=== PATIENT | female | born 1940 | race Caucasian/White ===

== ENCOUNTER → 2016-09-06 | Outpatient (CLI) | payer BC ==
[~2016-09-06] MED LIST: BROM0.0911 OPR; CALC-51 PO; CZR25 PO; MULT-506 PO; OMEGCAP2 PO; PRED1SUS3 OPR; SERT1TAB71 PO; TRIATAB3 PO
[2016-09-06 12:41] LABS: BLOOD UREA NITROGEN 15 mg/dl (7-18); BUN/CREATININE RATIO 12.8 (10-20); CARBON DIOXIDE 25 mmol/L (21-32); CHLORIDE 105 mmol/L (98-107); GLUCOSE 104 mg/dl (70-99); POTASSIUM 3.6 mmol/L (3.5-5.1); SODIUM 140 mmol/L (136-145)
[2016-09-06 12:45] LABS: CHOLESTEROL 230 mg/dl (0-200); CHOLESTEROL/HDL RATIO 4.2; HDL CHOLESTEROL 55 mg/dl; LDL CHOLESTEROL CALCULATED 111 mg/dl; TRIGLYCERIDES 321 mg/dl (0-150); VERY LOW DENSITY LIPOPROT CALC 64 mg/dl
== END | disposition home or self-care (01) ==
LOC: C.LABPVFM 08:43
PROVIDERS: ATTEND Family Medicine
DX: F32.9 Major depressive disorder, single episode, unspecified (principal)

== ENCOUNTER → 2017-02-05 | Outpatient (CLI) | payer BC ==
[2017-02-05 13:12] LABS: BLOOD UREA NITROGEN 25 mg/dl (7-18); BUN/CREATININE RATIO 22.6 (10-20); CALCIUM 9.6 mg/dl (8.5-10.1); CARBON DIOXIDE 26 mmol/L (21-32); CHLORIDE 106 mmol/L (98-107); GLUCOSE 106 mg/dl (70-99); POTASSIUM 3.6 mmol/L (3.5-5.1); SODIUM 141 mmol/L (136-145)
[2017-02-05 13:16] LABS: CHOLESTEROL 267 mg/dl (0-200); CHOLESTEROL/HDL RATIO 4.6; HDL CHOLESTEROL 58 mg/dl; LDL CHOLESTEROL CALCULATED 152 mg/dl; TRIGLYCERIDES 285 mg/dl (0-150); VERY LOW DENSITY LIPOPROT CALC 57 mg/dl
[2017-02-05 13:21] LABS: ESTIMATED AVERAGE GLUCOSE 126 mg/dl; HA1C FLAG Normal (Normal)
--- NOTE | 2017-02-09 12:43 | CODING QUERY MEDICAL NECESSITY ---
SUPPORTING DIAGNOSIS NEEDED A supporting diagnosis is required for the test/procedure performed on this patient in order for us to be reimbursed by the patient's insurance. Please provide a supporting diagnosis for the following test/procedure listed below next to the test name along with your signature. *If there is no additional diagnosis for this patient that would support the following test/procedure please document that below next to the test/procedure. Test(s)/Procedure(s) that require a supporting diagnosis: * HEMOGLOBIN A1C DIAGNOSIS: Provider Signature: Date: Thank you Katherine Brasher [employer] Information Management Once completed, please kindly fax back to [phone] For questions please call [phone]
== END | disposition home or self-care (01) ==
LOC: C.LABPVFM 08:46
PROVIDERS: ATTEND Family Medicine
DX: E78.5 Hyperlipidemia, unspecified (principal); I10 Essential (primary) hypertension; R53.83 Other fatigue; R73.03 Prediabetes; R73.09 Other abnormal glucose

== ENCOUNTER → 2017-05-02 | Outpatient (CLI) | payer BC ==
--- NOTE | 2017-05-02 13:41 | MAMMOGRAPHY REPORT ---
BILATERAL DIGITAL SCREENING MAMMOGRAM TOMOSYNTHESIS WITH CAD: 05/02/2017 CLINICAL HISTORY: Routine screening. TECHNIQUE: Breast tomosynthesis in addition to standard 2D mammography was performed. Current study was also evaluated with a Computer Aided Detection (CAD) system. COMPARISON: Comparison is made to exams dated: 04/26/2016 mammogram, 03/31/2015 mammogram, 02/11/2014 ma mmogram, 12/07/2011 mammogram, 12/05/2010 mammogram, and 11/30/2009 mammogram - [facility] nter. BREAST COMPOSITION: The tissue of both breasts is heterogeneously dense, which may obscure small mas ses. FINDINGS: No suspicious masses, calcifications, or areas of architectural distortion are noted in ei ther breast. There has been no significant interval change compared to prior exams. Scattered bilater al benign-appearing calcifications are not significantly changed. IMPRESSION: ACR BI-RADS CATEGORY 2: BENIGN There is no mammographic evidence of malignancy. A 1 year screening mammogram is recommended. The pa tient will receive written notification of the results. Approximately 10% of breast cancers are not detected with mammography. A negative mammographic report should not delay biopsy if a clinically suggestive mass is present. Maine Whitaker M.D. ah/:05/02/2017 10:45:04 Data Analyst Etl Developer: Mark KO)(Michaela), [facility] letter sent: Normal 1/2 BI-RADS Code: ACR BI-RADS Category 2: Benign
== END | disposition home or self-care (01) ==
LOC: C.MAMM 10:14
PROVIDERS: ATTEND Family Medicine
DX: Z12.31 Encounter for screening mammogram for malignant neoplasm of breast (principal)

== ENCOUNTER → 2017-06-04 | Outpatient (CLI) | payer BC ==
[2017-06-04 13:55] LABS: CHOLESTEROL/HDL RATIO 2.2
== END | disposition home or self-care (01) ==
LOC: C.LABPVFM 09:13
PROVIDERS: ATTEND Family Medicine
DX: E78.5 Hyperlipidemia, unspecified (principal)

== ENCOUNTER → 2017-06-06 | Outpatient (CLI) | payer BC ==
[2017-06-07 08:30] LABS: ESTIMATED AVERAGE GLUCOSE 123 mg/dl; HA1C FLAG Normal (Normal)
== END | disposition home or self-care (01) ==
LOC: C.LABPVFM 14:53
PROVIDERS: ATTEND Family Medicine
DX: G62.9 Polyneuropathy, unspecified (principal)

== ENCOUNTER 2022-01-15 09:27 | Inpatient (IN) ==
[2022-01-15] MEDS ORDERED: ONDANSETRON INJ 2 MG/ML 2 ML VIAL IV STA (10:15)
[2022-01-15] MEDS ORDERED: SODIUM CHLORIDE 0.9% 500 ML IV SCH (10:15)
--- NOTE | 2022-01-15 10:18 | Emergency Department Note ---
History of Present Illness General Chief complaint: Flu Like Symptoms Stated complaint: FEVER/HEADACHE/COUGH/CAN'T WALK Time Seen by Provider: 01/15/22 09:53 Source: patient History of Present Illness Provider complaint: Flulike symptoms Onset (ago): day(s) 3 Location: head, chest, upper extremity and lower extremity Pain Consistency: + constant Maximum Pain Intensity: 0 Quality: + aching Relieved By: + none Associated symptoms: + cough, + fever/chills, + headaches, + malaise, + nausea/vomiting and + weakness; no chest pain, no rash or no shortness of breath This is an 81-year-old female presents with flulike symptoms for the past 3 days. She started with a cough and headache. She describes her headache as a right frontal headache which is throbbing. It is worse when she is coughing. She states she is not bringing up anything with her cough but she coughs so hard sometimes that she throws up. She has been nauseous and unable to keep down her pills for the past 3 days. She denies any abdominal pain or diarrhea. She does have diffuse myalgias as well as generalized weakness. She had a slight sore throat. She denies any loss of taste or smell. She has no chest pain or tk rtness of breath or abdominal pain. She denies any urinary symptoms. She has had no tick bites or rash. She is fully vaccinated for COVID-19 with 1 booster. She has had no sick contacts. She has had tactile fevers and chills. Home Medications Medication Instructions Recorded Confirmed Type cholecalciferol (vitamin D3) 25 1,000 units PO DAILY cap 05/23/19 01/15/22 History mcg (1,000 unit) capsule multivitamin 1 tab PO DAILY 05/23/19 01/15/22 History omega-3 acid ethyl esters 1 gram 1 cap PO DAILY cap 05/23/19 01/15/22 History capsule travoprost 0.004 % eye drops 1 drops OP QPM ml 05/23/19 01/15/22 History atorvastatin 10 mg tablet 10 mg PO DAILY #90 tab 09/08/21 01/15/22 Rx losartan 25 mg tablet 25 mg PO DAILY #90 tab 09/23/21 01/15/22 Rx sertraline 50 mg tablet 50 mg PO DAILY #90 tab 09/23/21 01/15/22 Rx triamterene 37.5 1 cap PO DAILY #90 cap 09/23/21 01/15/22 Rx mg-hydrochlorothiazide 25 mg capsule alendronate 70 mg tablet 70 mg PO WEEKLY #12 tab 12/12/21 01/15/22 Rx glimepiride 2 mg tablet 2 mg PO QAM #90 tab 01/02/22 01/15/22 Rx Allergies Allergy/AdvReac Type Severity Reaction Status Date / Time No Known Allergies Allergy Unverified 09/08/21 10:30 Past Med/Surg History Medical History (Updated 01/15/22 @ 15:23 by Elvis Mayberry MD) HTN (hypertension) Hyperlipidemia Osteoporosis Surgical History Hx of shoulder surgery Family History Sister Colorectal cancer Denies family history of Ovarian cancer Prostate cancer Myocardial infarction Breast cancer Social History Smoking Status: Never smoker Second Hand Exposure: Yes; Hx Alcohol Use: No Hx Substance Use: No Preferred Language: Luxembourger Communication Ability: Effective Air Lift Operator Required: No marital status: Current Living Situation: Spouse current occupational status: retired How many Children do You have: 3 Feels Safe at Home: Yes Childhood Exposure to Second-Hand Smoke: No caffeine: Yes Dental Care, Regularly: No Physical Activity Frequency: Daily Seatbelt Use: always Sunscreen Use: Yes (sometimes) Review of Systems See HPI for pertinent positives & negatives. and A total of 10 systems reviewed and were otherwise negative Physical Exam Vital Signs Vital Signs - 24 hr 01/15/22 09:36 01/15/22 10:14 01/15/22 10:58 Temperature 36.7 C Temperature Source Oral Pulse Rate 90 Pulse Rate [Right Finger] Pulse Rhythm [Right Finger] Respiratory Rate 18 20 Respiratory Effort / Characteristics Non-Labored Spontaneous Non-Labored Respiratory Depth Blood Pressure 141/75 H Blood Pressure [Right Arm] Blood Pressure Mean 97 Blood Pressure Mean [Right Arm] Pulse Oximetry 94 95 Oxygen Delivery Method Room Air Room Air Sepsis Recent Fever Within 48 Hours No Sepsis New/Unexplained Change in Mental Status No Sepsis Action Taken by Nursing No Action Required 01/15/22 11:24 01/15/22 11:36 01/15/22 12:33 Temperature Temperature Source Pulse Rate Pulse Rate [Right Finger] 86 Pulse Rhythm [Right Finger] Respiratory Rate 18 Respiratory Effort / Characteristics Non-Labored Non-Labored Non-Labored Respiratory Depth Normal Blood Pressure Blood Pressure [Right Arm] 127/62 Blood Pressure Mean Blood Pressure Mean [Right Arm] 83 Pulse Oximetry 94 Oxygen Delivery Method Room Air Sepsis Recent Fever Within 48 Hours Sepsis New/Unexplained Change in Mental Status Sepsis Action Taken by Nursing 01/15/22 13:00 Temperature Temperature Source Pulse Rate Pulse Rate [Right Finger] 94 H Pulse Rhythm [Right Finger] Regular Respiratory Rate 18 Respiratory Effort / Characteristics Non-Labored Respiratory Depth Normal Blood Pressure Blood Pressure [Right Arm] 124/78 Blood Pressure Mean Blood Pressure Mean [Right Arm] 93 Pulse Oximetry 98 Oxygen Delivery Method Room Air Sepsis Recent Fever Within 48 Hours Sepsis New/Unexplained Change in Mental Status Sepsis Action Taken by Nursing Constitutional: Vital signs reviewed. Eyes: Pupils are equal round reactive to light. Conjunctiva are noninjected. ENT: Pharynx is clear without erythema or exudate. Mucous membranes are moist. Neck supple without meningeal signs. Respiratory: Clear to auscultation bilaterally. Breath sounds are equal bilaterally. Cardiovascular: Regular rate and rhythm. No rubs or gallops. GI: Soft, nondistended and nontender. Bowel sounds are present. Musculoskeletal: No peripheral edema. No lower extremity tenderness. Integumentary: No cyanosis. or jaundice. Neurological: The patient is awake and alert. No focal deficits. Psychiatric: Normal affect. Not anxious appearing. Course Administered Medications Discontinued Medications Sodium Chloride (Nss) 500 mls @ 80 mls/hr IV .[id number] [facility] Stop: 02/14/22 10:14 Last Infusion: 01/15/22 15:15 Dose: 0 mls/hr Documented by: [id number] Admin: 01/15/22 10:32 Dose: 80 mls/hr Documented by: [id number] Magnesium Sulfate/Dextrose (Magnesium Sulfate / D5w) 1 gm in 100 mls @ 100 mls/hr IV Q1H [facility] Stop: 01/15/22 13:13 Last Infusion: 01/15/22 13:33 Dose: 0 mls/hr Documented by: [id number] Admin: 01/15/22 12:21 Dose: 100 mls/hr Documented by: [id number] Infusion: 01/15/22 12:21 Dose: 100 mls/hr Documented by: [id number] Admin: 01/15/22 11:22 Dose: 100 mls/hr Documented by: [id number] Ceftriaxone Sodium (Rocephin) 2,000 mg in 70 mls @ 140 mls/hr IV NOW STA Stop: 01/15/22 13:18 Last Infusion: 01/15/22 14:11 Dose: 0 mls/hr Documented by: [id number] Admin: 01/15/22 13:34 Dose: 140 mls/hr Documented by: [id number] Ondansetron HCl (Ondansetron Inj 2 Mg/Ml 2 Ml Vial) 4 mg IV NOW STA Stop: 01/15/22 10:16 Last Admin: 01/15/22 10:32 Dose: 4 mg Documented by: [id number] Medical Decision Making Differential Diagnosis Sepsis, COVID-19, pneumonia, UTI, influenza, tickborne illness Medical Records Attestation: I reviewed the patient's medical records. I did perform a limited focused review of portions of the patient's old chart on the electronic medical record. The patient has had no recent pertinent visits to this hospital. Home Medications Current Medication List: was personally reviewed by me Laboratory Data Attestation: I reviewed the patient's lab results. Result diagrams: 01/15/22 09:45 01/15/22 09:45 Lab Results 01/15/22 01/15/22 01/15/22 Range/Units 09:45 09:45 09:45 WBC 8.17 (4.8-10.8) K/uL RBC 4.47 (4.2-5.4) M/uL Hgb 13.4 (12.0-16.0) g/dL Hct 37.8 (37-47) % MCV 84.6 (80-100) fL MCH 30.0 (25-34) pg MCHC 35.4 (32-36) g/dL RDW Std Deviation 40.1 (36.4-46.3) fL RDW Coeff of Cecilio 13.0 (11.5-14.5) % Plt Count 168 (130-400) K/uL MPV 9.6 (7.4-10.4) fL Immature Gran % (Auto) 0.2 % Neut % (Auto) 79.4 % Lymph % (Auto) 11.9 % Isabella % (Auto) 8.3 % Eos % (Auto) 0.0 % Baso % (Auto) 0.2 % Neut # (Auto) 6.48 (1.4-6.5) K/uL Lymph # (Auto) 0.97 L (1.2-3.4) K/uL Isabella # (Auto) 0.68 H (0.11-0.59) K/uL Eos # (Auto) 0.00 (0-0.5) K/uL Baso # (Auto) 0.02 (0-0.2) K/uL Immature Gran # (Auto) 0.02 (0.00-0.02) K/uL PT 12.0 (9.0-12.0) Seconds INR 1.1 (0.9-1.1) APTT 29.6 (21.0-31.0) Seconds PTT Ratio 1.1 Sodium 127 L (136-145) mmol/L Potassium 3.8 (3.5-5.1) mmol/L Chloride 94 L (98-107) mmol/L Carbon Dioxide 21 (21-32) mmol/L Anion Gap 12 H (3-11) BUN 14 (6-23) mg/dl Creatinine 1.04 (0.6-1.2) mg/dl Est Cr Clr Drug Dosing Not Reportable Est GFR ( Amer) 57.9 ml/min Est GFR (Non-Af Amer) 50.0 ml/min BUN/Creatinine Ratio 13.5 (10-20) Glucose 190 H (70-99(Fasting)) mg/dl Lactate (0.4-2.0) mmol/L Calcium 9.0 (8.5-10.1) mg/dl Magnesium 1.4 L (1.7-2.4) mg/dl Total Bilirubin 0.9 (0.2-1.0) mg/dl AST 45 H (13-39) U/L ALT 43 (7-52) U/L Alkaline Phosphatase 67 (34-104) U/L Troponin I High Sens 11.9 (0-14) pg/ml Total Protein 7.2 (6.0-8.3) gm/dl Albumin 4.0 (3.4-5.0) gm/dl Globulin 3.2 (2.5-4.0) gm/dl Albumin/Globulin Ratio 1.3 (0.9-2) Urine Color Urine Appearance (Clear) Urine pH (4.5-7.5) Ur Specific Crane (1.000-1.030) Urine Protein (Negative) Urine Glucose (UA) (Negative) Urine Ketones (Negative) Urine Blood (Negative) Urine Nitrite (Negative) Urine Bilirubin (Negative) Urine Urobilinogen (Negative) Ur Leukocyte Esterase (Negative) Urine WBC (Auto) (0-5) /hpf Urine RBC (Auto) (0-4) /hpf U Hyaline Cast (Auto) (0-5) /lpf U Epithel Cells (Auto) (0-5) /lpf Urine Bacteria (Auto) (Negative) Urine Osmolality (500-800) mOsm/kg Ur Random Sodium mmol/L Anaplasma Smear See Comment Babesia Smear See Comment Lyme Disease IgG Ab (Negative) Lyme Disease IgM Ab (Negative) SARS-CoV-2 (PCR) (Negative) Influenza Type A (PCR) (Neg) Influenza Type B (PCR) (Neg) RSV (RT-PCR) (Neg) 01/15/22 01/15/22 01/15/22 Range/Units 09:45 10:20 10:20 WBC (4.8-10.8) K/uL RBC (4.2-5.4) M/uL Hgb (12.0-16.0) g/dL Hct (37-47) % MCV (80-100) fL MCH (25-34) pg MCHC (32-36) g/dL RDW Std Deviation (36.4-46.3) fL RDW Coeff of Cecilio (11.5-14.5) % Plt Count (130-400) K/uL MPV (7.4-10.4) fL Immature Gran % (Auto) % Neut % (Auto) % Lymph % (Auto) % Isabella % (Auto) % Eos % (Auto) % Baso % (Auto) % Neut # (Auto) (1.4-6.5) K/uL Lymph # (Auto) (1.2-3.4) K/uL Isabella # (Auto) (0.11-0.59) K/uL Eos # (Auto) (0-0.5) K/uL Baso # (Auto) (0-0.2) K/uL Immature Gran # (Auto) (0.00-0.02) K/uL PT (9.0-12.0) Seconds INR (0.9-1.1) APTT (21.0-31.0) Seconds PTT Ratio Sodium (136-145) mmol/L Potassium (3.5-5.1) mmol/L Chloride (98-107) mmol/L Carbon Dioxide (21-32) mmol/L Anion Gap (3-11) BUN (6-23) mg/dl Creatinine (0.6-1.2) mg/dl Est Cr Clr Drug Dosing Est GFR ( Amer) ml/min Est GFR (Non-Af Amer) ml/min BUN/Creatinine Ratio (10-20) Glucose (70-99(Fasting)) mg/dl Lactate (0.4-2.0) mmol/L Calcium (8.5-10.1) mg/dl Magnesium (1.7-2.4) mg/dl Total Bilirubin (0.2-1.0) mg/dl AST (13-39) U/L ALT (7-52) U/L Alkaline Phosphatase (34-104) U/L Troponin I High Sens (0-14) pg/ml Total Protein (6.0-8.3) gm/dl Albumin (3.4-5.0) gm/dl Globulin (2.5-4.0) gm/dl Albumin/Globulin Ratio (0.9-2) Urine Color Urine Appearance (Clear) Urine pH (4.5-7.5) Ur Specific Crane (1.000-1.030) Urine Protein (Negative) Urine Glucose (UA) (Negative) Urine Ketones (Negative) Urine Blood (Negative) Urine Nitrite (Negative) Urine Bilirubin (Negative) Urine Urobilinogen (Negative) Ur Leukocyte Esterase (Negative) Urine WBC (Auto) (0-5) /hpf Urine RBC (Auto) (0-4) /hpf U Hyaline Cast (Auto) (0-5) /lpf U Epithel Cells (Auto) (0-5) /lpf Urine Bacteria (Auto) (Negative) Urine Osmolality 464 L (500-800) mOsm/kg Ur Random Sodium 16 mmol/L Anaplasma Smear Babesia Smear Lyme Disease IgG Ab Negative (Negative) Lyme Disease IgM Ab Positive A (Negative) SARS-CoV-2 (PCR) (Negative) Influenza Type A (PCR) (Neg) Influenza Type B (PCR) (Neg) RSV (RT-PCR) (Neg) 01/15/22 01/15/22 01/15/22 Range/Units 10:25 10:35 11:15 WBC (4.8-10.8) K/uL RBC (4.2-5.4) M/uL Hgb (12.0-16.0) g/dL Hct (37-47) % MCV (80-100) fL MCH (25-34) pg MCHC (32-36) g/dL RDW Std Deviation (36.4-46.3) fL RDW Coeff of Cecilio (11.5-14.5) % Plt Count (130-400) K/uL MPV (7.4-10.4) fL Immature Gran % (Auto) % Neut % (Auto) % Lymph % (Auto) % Isabella % (Auto) % Eos % (Auto) % Baso % (Auto) % Neut # (Auto) (1.4-6.5) K/uL Lymph # (Auto) (1.2-3.4) K/uL Isabella # (Auto) (0.11-0.59) K/uL Eos # (Auto) (0-0.5) K/uL Baso # (Auto) (0-0.2) K/uL Immature Gran # (Auto) (0.00-0.02) K/uL PT (9.0-12.0) Seconds INR (0.9-1.1) APTT (21.0-31.0) Seconds PTT Ratio Sodium (136-145) mmol/L Potassium (3.5-5.1) mmol/L Chloride (98-107) mmol/L Carbon Dioxide (21-32) mmol/L Anion Gap (3-11) BUN (6-23) mg/dl Creatinine (0.6-1.2) mg/dl Est Cr Clr Drug Dosing Est GFR ( Amer) ml/min Est GFR (Non-Af Amer) ml/min BUN/Creatinine Ratio (10-20) Glucose (70-99(Fasting)) mg/dl Lactate 0.8 (0.4-2.0) mmol/L Calcium (8.5-10.1) mg/dl Magnesium (1.7-2.4) mg/dl Total Bilirubin (0.2-1.0) mg/dl AST (13-39) U/L ALT (7-52) U/L Alkaline Phosphatase (34-104) U/L Troponin I High Sens (0-14) pg/ml Total Protein (6.0-8.3) gm/dl Albumin (3.4-5.0) gm/dl Globulin (2.5-4.0) gm/dl Albumin/Globulin Ratio (0.9-2) Urine Color Yellow Urine Appearance Cloudy A (Clear) Urine pH 6.0 (4.5-7.5) Ur Specific Crane 1.017 (1.000-1.030) Urine Protein 1+ H (Negative) Urine Glucose (UA) Negative (Negative) Urine Ketones 1+ H (Negative) Urine Blood Trace H (Negative) Urine Nitrite Negative (Negative) Urine Bilirubin Negative (Negative) Urine Urobilinogen Negative (Negative) Ur Leukocyte Esterase 2+ H (Negative) Urine WBC (Auto) >30 H (0-5) /hpf Urine RBC (Auto) 0-4 (0-4) /hpf U Hyaline Cast (Auto) 0 (0-5) /lpf U Epithel Cells (Auto) >30 H (0-5) /lpf Urine Bacteria (Auto) 1+ H (Negative) Urine Osmolality (500-800) mOsm/kg Ur Random Sodium mmol/L Anaplasma Smear Babesia Smear Lyme Disease IgG Ab (Negative) Lyme Disease IgM Ab (Negative) SARS-CoV-2 (PCR) NEGATIVE (Negative) Influenza Type A (PCR) Negative (Neg) Influenza Type B (PCR) Negative (Neg) RSV (RT-PCR) Negative (Neg) Imaging Data Radiologist's Impression: Chest X-Ray 01/15/22 10:14 XR chest 1V portable CLINICAL HISTORY: SEPSIS TECHNIQUE: Single frontal radiograph of the chest was obtained. Comparison: None available at the time of this dictation. FINDINGS: No lines and tubes are seen. The cardiomediastinal silhouette is normal. The lungs are clear. No evidence of pleural effusion or pneumothorax. IMPRESSION: No acute chest disease. ACT 112: Negative or not required by law. Electronically signed by: Salinas Kulkarni M.D. 01/15/2022 10:37 AM ECG Data Attestation: I personally reviewed and interpreted this ECG as follows: Indication: + weakness Rate (beats per minute): 88 Rhythm: + normal sinus ECG [place]: + Normal ECG ST segments: no ST elevation ECG Findings: no PVCs MDM Narrative I did evaluate the patient as noted above. The patient is presenting with generalized weakness, cough, headache, vomiting and fever and chills. She has not been able to take her medications. IV access was established. I did treat her with Zofran IV. did place an order for continuous cardiac monitoring. The monitor showed normal sinus rhythm at 88 bpm. I did order and personally review the patient's 12-lead EKG as described above. I did order and personally reviewed the images of the patient's chest x-ray as described above. There is no evidence of pneumonia. I did order a urine analysis. She does appear to have a UTI. I did order blood cultures. I did order and review the patient's blood work as noted in the electronic medical record. CBC demonstrates no evidence of leukocytosis or anemia. There is no left shift on differential. Her electrolytes show a sodium of 127, chloride of 94 and magnesium 1.4. I did burt t the patient with magnesium IV. High-sensitivity troponin is negative. Testing for Lyme disease is positive for IgM. A Western blot was sent. Anaplasmosis and babesiosis was not detected on peripheral smear. Testing for COVID-19, influenza and RSV are negative. I did discuss the test results with the patient. She will be hospitalized for further care and evaluation. She is very weak and cannot take her meds at home. I did treat her with Rocephin 2 g IV. I did discuss case with the hospitalist and family caseworker. Impression & Plan Lyme disease, Hypomagnesemia, Hyponatremia, Generalized weakness, Vomiting Discharge Plan Visit Data Chief Complaint: Flu Like Symptoms Stated Complaint: FEVER/HEADACHE/COUGH/CAN'T WALK ED Provider: Elvis Mayberry Discharge Problem: Lyme disease, Hypomagnesemia, Hyponatremia, Generalized weakness, Vomiting Patient Disposition: Admitted As Inpatient Discharge Instructions Interventions: ED Discharge Assessment Last Done: 01/15/22 14:42
[2022-01-15 10:25] LABS: Basophils # (auto) 0.02 K/uL (0-0.2); Basophils % (auto) 0.2 %; Hematocrit (blood only) 37.8 % (37-47); Hemoglobin 13.4 g/dL (12.0-16.0); Immature Granulocytes # (auto) 0.02 K/uL (0.00-0.02); Immature Granulocytes % (auto) 0.2 %; Lymphocytes # (auto) 0.97 K/uL (1.2-3.4); Lymphocytes % (auto) 11.9 %; Mean Corpuscular Hgb Conc 35.4 g/dL (32-36); Mean Corpuscular Volume 84.6 fL (80-100); Mean Platelet Volume 9.6 fL (7.4-10.4); Monocytes # (auto) 0.68 K/uL (0.11-0.59); Monocytes % (auto) 8.3 %; Neutrophils # (auto) 6.48 K/uL (1.4-6.5); Neutrophils % (auto) 79.4 %; Platelet Count 168 K/uL (130-400); RDW Standard Deviation 40.1 fL (36.4-46.3); Red Blood Count 4.47 M/uL (4.2-5.4); White Blood Count 8.17 K/uL (4.8-10.8)
--- NOTE | 2022-01-15 10:38 | XRay Report ---
XR chest 1V portable CLINICAL HISTORY: SEPSIS TECHNIQUE: Single frontal radiograph of the chest was obtained. Comparison: None available at the time of this dictation. FINDINGS: No lines and tubes are seen. The cardiomediastinal silhouette is normal. The lungs are clear. No evid ence of pleural effusion or pneumothorax. IMPRESSION: No acute chest disease. ACT 112: Negative or not required by law. Electronically signed by: Salinas Kulkarni M.D. 01/15/2022 10:37 AM
[2022-01-15 10:42] LABS: Troponin I High Sensitivity 11.9 pg/ml (0-14)
[2022-01-15 10:44] LABS: INR 1.1 (0.9-1.1); Partial Thromboplastin Ratio 1.1; Partial Thromboplastin Time 29.6 Seconds (21.0-31.0)
[2022-01-15 10:49] LABS: Alanine Aminotransferase 43 U/L (7-52); Albumin Globulin Ratio 1.3 (0.9-2); Alkaline Phosphatase 67 U/L (34-104); Anion Gap 12 (3-11); Aspartate Aminotransferase 45 U/L (13-39); BUN Creatinine Ratio 13.5 (10-20); Bilirubin,Total 0.9 mg/dl (0.2-1.0); Blood Urea Nitrogen 14 mg/dl (6-23); Carbon Dioxide 21 mmol/L (21-32); Chloride 94 mmol/L (98-107); Est GFR (African American) 57.9 ml/min; Globulin 3.2 gm/dl (2.5-4.0); Glucose 190 mg/dl (70-99(Fasting)); Magnesium 1.4 mg/dl (1.7-2.4); Potassium 3.8 mmol/L (3.5-5.1); Sodium 127 mmol/L (136-145); Total Protein 7.2 gm/dl (6.0-8.3)
[2022-01-15 11:02] LABS: Appearance Urine Cloudy (Clear); Bacteria Urine Automated 1+ (Negative); Bilirubin Urine Negative (Negative); Blood Urine Trace (Negative); Color Urine Yellow; Epithelial Cell Urine Auto >30 /lpf (0-5); Glucose Urine UA Negative (Negative); Ketones Urine 1+ (Negative); Leukocyte Esterase Urine 2+ (Negative); Nitrite Urine Negative (Negative); Protein Urine 1+ (Negative); RBC Urine Automated 0-4 /hpf (0-4); Specific Gravity Urine 1.017 (1.000-1.030); Urobilinogen Urine Negative (Negative); WBC Urine Automated >30 /hpf (0-5)
[2022-01-15 11:05] LABS: Lyme Ab IgG w/WB Rflx Negative (Negative)
[2022-01-15 11:11] LABS: Lyme Ab IgM w/WB Rflx Positive (Negative)
[2022-01-15 11:17] LABS: Cast Urine Automated 0 /lpf (0-5)
[2022-01-15] MEDS: MAGNESIUM SULFATE / D5W 1 GM/100 ML BAG IV SCH ×2 (11:22→12:21)
[2022-01-15 11:46] LABS: Influenza A virus by PCR Negative (Neg); Influenza B virus by PCR Negative (Neg); RSV by PCR Negative (Neg); SARS CoV2 RNA(COVID-19) InHosp NEGATIVE (Negative)
[2022-01-15] MEDS ORDERED: cefTRIAXone SODIUM 2,000 MG/70 ML BAG IV STA (12:49)
--- NOTE | 2022-01-15 13:02 | History & Physical Report ---
Date of Service January 15, 2022 Assessment & Plan (1) Lyme disease: Plan: - Has not noticed any ticks on her, but with red patch on neck this week. Not present now. - IgM (+), IgG (-) ; bands pending. - Received Rocephin in ED for concern for UTI which also covers or Lyme; added a procalcitonin to labs, 1.07, therefore will continue Rocephin daily to cover for UTI as well as Lyme disease. - Tylenol prn for headache. - WBCs, Hgb, PLTs all wnl, however AST mildly elevated at 45. - HR 80-90s, EKG shows NSR without any evidence for heart block. - Continue to monitor labs on daily CBC, CMP. - Place on telemetry for low mag, monitor HR. (2) Elevated LFTs: Plan: - Suspect 2/2 Lyme disease, AST 45, all other liver enzymes wnl. - Continue to monitor on daily CMP. (3) UTI (urinary tract infection): Plan: - UA not entirely convincing for UTI; with > 30 WBCs, 2+ leuk esterase, 1+ bacteria in a contaminated sample w/ > 30 epithelial cells. Does report that she had some dysuria, low back pain earlier this month but none at present. - Procal 1.07--> continue Rocephin. (4) Hyponatremia: Plan: - 127, will order serum and urine osm, urine Na. - Hold triamterene/HCTZ. - Hold further IVF pending above labs. - Suspect it is low due to poor po intake over the last few days. May be contributing to weakness. (5) Hypomagnesemia: Plan: - 1.4, replete w/ 3 bags Mg++ and recheck in ED. - Suspect it is low due to poor po intake over the last few days. May be contributing to weakness. (6) HTN (hypertension): Plan: - Normotensive. - Holding HCTZ/trimateren due to low NA, continue losartan. (7) Hyperlipidemia: Plan: - Continue atorvaststain 10 gm daily. (8) Diabetes: Plan: - On glimepiride 2 mg daily at home; elevated glucose on CMP 190. - Holed home meds, switch to accouchecks ACHS with SSI. - Due for A1c, will order with AM labs. (9) Osteoporosis: Plan: - Alendronate weekly, takes on Wednesdays. - Continue vitamin D supplement. Plan: - Admit to med/tele for tonight for electrolyte abnormalities, monitor for bradycardia/heart block in setting of acute Lyme infection. - SCDs for VTE ppx - Full Code. History of Present Illness Chief Complaint: Weakness and fatigue since Primary Care Provider: Tereza Dejesus MD Kristine Ohara is an 81-year-old female with a past medical history significant for hypertension, hyperlipidemia, diabetes, pression, and osteoporosis who presents today with weakness and fatigue. evening, she went for her usual walk around the neighborhood, but felt very fatigued and was unable to complete it. Also had onset of a dry cough, fever/chills that started Sunday, a right sided frontal headache, and mild nausea, which has made it hard for her to take her medications the past few days. She denies any focal weakness, numbness/tingling, chest pain, palpitations, shortness of breath, syncopal episodes, dizziness, isolated joint pain or edema, neck pain, abdominal pain, vomiting, diarrhea, or constipation. She states she is outside in her yard often watering her many antunez, but has not been in the purcell lately and typically is not. She does not recall having any ticks on her lately, but at bedside reports she had a red patch on the back of her neck this week which is now resolved. In ED, vital signs within normal limits, stable. Labs significant for sodium of 127 and a magnesium of 1.4. Rajendra also level 8 at 190. AST mildly elevated at 45. UA with bacteria, leuk esterase and white blood cells. Lyme IgM positive. COVID/influenza AMB/RSV negative. Allergies Allergy/AdvReac Type Severity Reaction Status Date / Time No Known Allergies Allergy Unverified 09/08/21 10:30 Home Medications Medication Instructions Recorded Confirmed Type cholecalciferol (vitamin D3) 25 1,000 units PO DAILY cap 05/23/19 01/15/22 History mcg (1,000 unit) capsule multivitamin 1 tab PO DAILY 05/23/19 01/15/22 History omega-3 acid ethyl esters 1 gram 1 cap PO DAILY cap 05/23/19 01/15/22 History capsule travoprost 0.004 % eye drops 1 drops OP QPM ml 05/23/19 01/15/22 History atorvastatin 10 mg tablet 10 mg PO DAILY #90 tab 09/08/21 01/15/22 Rx losartan 25 mg tablet 25 mg PO DAILY #90 tab 09/23/21 01/15/22 Rx sertraline 50 mg tablet 50 mg PO DAILY #90 tab 09/23/21 01/15/22 Rx triamterene 37.5 1 cap PO DAILY #90 cap 09/23/21 01/15/22 Rx mg-hydrochlorothiazide 25 mg capsule alendronate 70 mg tablet 70 mg PO WEEKLY #12 tab 12/12/21 01/15/22 Rx glimepiride 2 mg tablet 2 mg PO QAM #90 tab 01/02/22 01/15/22 Rx Past Med/Surg History Medical History (Updated 01/15/22 @ 15:23 by Elvis Mayberry MD) HTN (hypertension) Hyperlipidemia Osteoporosis Surgical History Hx of shoulder surgery Family History Sister Colorectal cancer Denies family history of Ovarian cancer Prostate cancer Myocardial infarction Breast cancer Social History Smoking Status: Never smoker Second Hand Exposure: Yes; Hx Alcohol Use: No Hx Substance Use: No Preferred Language: Japanese Communication Ability: Effective 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 Beliefs That Will Affect Care: None marital status: Current Living Situation: Spouse current occupational status: retired How many Children do You have: 3 Other Information That Helps Us Care for You: No Feels Safe at Home: Yes Safety Concerns: Feels Safe At This Time Childhood Exposure to Second-Hand Smoke: No caffeine: Yes Dental Care, Regularly: No Physical Activity Frequency: Daily Seatbelt Use: always Sunscreen Use: Yes (sometimes) Assistive Devices: None and Glasses Review of Systems Review of Systems: All systems reviewed & are unremarkable except as noted in HPI & below Physical Exam Physical Exam: General: awake, alert, no apparent distress Head: Normocephalic, atraumatic ENT: PERRL, EOMI, no pharyngeal exudate, mucous membranes moist Chest: Clear to auscultation, on room air, no adventitious breath sounds Cardiac: Regular rate and rhythm, no murmur, no JVD, normal peripheral pulses, good capillary refill Abdominal: NABS x 4 quadrants, soft, nontender to palpation, no rebound, guarding or tenderness Extremities: Normal inspection, no peripheral edema or erythema, calfs nontender to palpation Psych: Normal mood and affect Neuro: AAO x 3, strength intact bilaterally and rated 5/5, no motor deficits, speech is clear, no peripheral sensory deficits Skin: no rash or erythema Results & Data Results & Data ([facility]) Vital Signs (Past 12 Hours) Vital Signs Temp Pulse Pulse Resp BP BP Pulse Ox 01/15/22 11:36 86 18 127/62 94 01/15/22 10:14 20 95 01/15/22 09:36 36.7 C 90 18 141/75 H 94 Laboratory Results Abnormal lab results 01/15/22 01/15/22 01/15/22 Range/Units 09:45 09:45 09:45 Lymph # (Auto) 0.97 L (1.2-3.4) K/uL Sheridan # (Auto) 0.68 H (0.11-0.59) K/uL Sodium 127 L (136-145) mmol/L Chloride 94 L (98-107) mmol/L Anion Gap 12 H (3-11) Glucose 190 H (70-99(Fasting)) mg/dl Magnesium 1.4 L (1.7-2.4) mg/dl AST 45 H (13-39) U/L Urine Appearance (Clear) Urine Protein (Negative) Urine Ketones (Negative) Urine Blood (Negative) Ur Leukocyte Esterase (Negative) Urine WBC (Auto) (0-5) /hpf U Epithel Cells (Auto) (0-5) /lpf Urine Bacteria (Auto) (Negative) Lyme Disease IgM Ab Positive A (Negative) 01/15/22 Range/Units 10:25 Lymph # (Auto) (1.2-3.4) K/uL Sheridan # (Auto) (0.11-0.59) K/uL Sodium (136-145) mmol/L Chloride (98-107) mmol/L Anion Gap (3-11) Glucose (70-99(Fasting)) mg/dl Magnesium (1.7-2.4) mg/dl AST (13-39) U/L Urine Appearance Cloudy A (Clear) Urine Protein 1+ H (Negative) Urine Ketones 1+ H (Negative) Urine Blood Trace H (Negative) Ur Leukocyte Esterase 2+ H (Negative) Urine WBC (Auto) >30 H (0-5) /hpf U Epithel Cells (Auto) >30 H (0-5) /lpf Urine Bacteria (Auto) 1+ H (Negative) Lyme Disease IgM Ab (Negative) Diagnostic Findings Chest X-Ray 01/15/22 10:14 XR chest 1V portable CLINICAL HISTORY: SEPSIS TECHNIQUE: Single frontal radiograph of the chest was obtained. Comparison: None available at the time of this dictation. FINDINGS: No lines and tubes are seen. The cardiomediastinal silhouette is normal. The lungs are clear. No evidence of pleural effusion or pneumothorax. IMPRESSION: No acute chest disease. ACT 112: Negative or not required by law. Electronically signed by: Salinas Kulkarni M.D. 01/15/2022 10:37 AM Code Status & VTE Plan Code Status Normal sinus rhythm Normal ECG When compared with ECG of 30-APR-1996 09:04, No significant change was found. Supervising Physician Co-Signing Physician Notes I personally saw and examined the patient. I verified all amezquita points and agree with Darcy Wolf PA-C with the following exceptions and/or additions: 81 year old female admission for generalized fatigue and muscle aches. Increased urinary frequency and lower back pain for last 2 days but no dysuria which she has previously experienced with UTIs. No flank tenderness. Associated nausea and vomiting without abdominal pain or diarrhea. WBC normal. O/E HS1+2, no murmurs, Chest CTAB, Abdo SNT, No CVA tenderness A/P UTI - noted IgM lyme positive although patient is not meningeal and not concerned about nervous system lyme disease. History is more consistent with UTI and agree with continuing ceftriaxone for this purpose. If susequent urine culture negative could switch to doxycycline to finish course for lyme disease. Follow up urine and blood cultures. Electrolytes abnormalities - suspect secondary to vomiting and will replace as needed. IV fluids switched to NSS. PG Care Time/CCT Total # of Minutes Spent Total Time Spent with Patient: Total time spent is greater than 50% in coordination of care (as documented) at patient's floor/unit and/or counseling patient: Coding Level of Care Code 22225 Initial In Care Lvl 3 Diagnoses Lyme disease A69.20 UTI (urinary tract infection) N39.0 Hypomagnesemia E83.42 Hyponatremia E87.1 Elevated LFTs R79.89 HTN (hypertension) I10 Hyperlipidemia E78.5 Diabetes E11.9 Osteoporosis M81.0
[2022-01-15] MEDS ORDERED: MAGNESIUM SULFATE / D5W 1 GM/100 ML BAG IV ONE (15:13)
[2022-01-15] MEDS ORDERED: GLUCOSE 10 TABS/TUBE PO PRN (15:13)
[2022-01-15] MEDS ORDERED: GLUCAGON FOR INJ 1 MG VIAL SQ PRN (15:13)
[2022-01-15] MEDS ORDERED: ACETAMINOPHEN 325 MG TAB PO PRN (15:13)
[2022-01-15] MEDS ORDERED: DC ALL PREVIOUSLY ORDERED DIABETES MEDS ONE (15:13)
[2022-01-15] MEDS ORDERED: GLUCOSE 40% GEL 15 GM TUBE PO PRN (15:13)
[2022-01-15] MEDS ORDERED: ONDANSETRON INJ 2 MG/ML 2 ML VIAL IV PRN (15:13)
[2022-01-15] MEDS ORDERED: CARBOHYDRATES FOR HYPOGLYCEMIA PO PRN (15:13)
[2022-01-15] MEDS ORDERED: DEXTROSE 50% 50 ML SYRINGE IV PRN (15:13)
[2022-01-15] MEDS ORDERED: POLYETHYLENE (MIRALAX) 17 GM PACK PO PRN (15:13)
[2022-01-15] MEDS ORDERED: NORMOSOL-R 1,000 ML IV SCH (15:45)
[2022-01-15] MEDS: SODIUM CHLORIDE 0.9% 1000ML 1,000 ML IV SCH (16:39)
[2022-01-15] MEDS: INSULIN ASPART PER UNIT SC SCH ×2 (18:01→20:36)
[2022-01-15] MEDS ORDERED: COUGH DROP (SUGAR FREE) LOZ 24 LOZ/1 BOX BUCCAL PRN (19:56)
[2022-01-15] MEDS ORDERED: TRAVOPROST Z 0.004% OPH SOLN 2.5 ML BTL OP SCH (21:00)
[2022-01-15] MEDS ORDERED: ENOXAPARIN INJ 40 MG/0.4 ML SYR SQ SCH (21:10)
--- NOTE | 2022-01-15 21:23 | Electrocardiogram Report ---
Test Reason : Blood Pressure : / mmHG Vent. Rate : 088 BPM Atrial Rate : 088 BPM P-R Int : 188 ms QRS Dur : 074 ms QT Int : 366 ms P-R-T Axes : 051 015 046 degrees QTc Int : 442 ms Normal sinus rhythm Normal ECG When compared with ECG of 30-APR-1996 09:04, No significant change was found Confirmed by Sourav Rivero ([id number]) on 01/15/2022 9:22:59 PM Referred By: REFERRED SELF Confirmed By:Sourav Rivero
[2022-01-16] MEDS: SODIUM CHLORIDE 0.9% 1000ML 1,000 ML IV SCH ×2 (00:25→08:49)
[2022-01-16] MEDS ORDERED: SERTRALINE HCL 50 MG TABLET PO SCH (09:00)
[2022-01-16] MEDS ORDERED: ATORVASTATIN 10 MG TAB PO SCH (09:00)
[2022-01-16] MEDS ORDERED: CHOLECALCIFEROL 1,000 UNITS 25 MCG TAB PO SCH (09:00)
[2022-01-16] MEDS ORDERED: LOSARTAN POTASSIUM 25 MG TAB PO SCH (09:00)
[2022-01-16] MEDS: INSULIN ASPART PER UNIT SC SCH ×2 (09:19→12:24)
[2022-01-16 09:27] LABS: Basophils # (auto) 0.01 K/uL (0-0.2); Basophils % (auto) 0.2 %; Eosinophils # (auto) 0.01 K/uL (0-0.5); Eosinophils % (auto) 0.2 %; Hematocrit (blood only) 34.5 % (37-47); Hemoglobin 11.7 g/dL (12.0-16.0); Lymphocytes # (auto) 0.99 K/uL (1.2-3.4); Mean Corpuscular Hemoglobin 29.1 pg (25-34); Mean Corpuscular Hgb Conc 33.9 g/dL (32-36); Mean Corpuscular Volume 85.8 fL (80-100); Mean Platelet Volume 9.4 fL (7.4-10.4); Monocytes % (auto) 11.1 %; Neutrophils # (auto) 2.98 K/uL (1.4-6.5); Neutrophils % (auto) 66.5 %; Platelet Count 164 K/uL (130-400); RDW Coefficient of Variation 13.5 % (11.5-14.5); RDW Standard Deviation 42.6 fL (36.4-46.3); Red Blood Count 4.02 M/uL (4.2-5.4); White Blood Count 4.49 K/uL (4.8-10.8)
[2022-01-16 09:57] LABS: Albumin Globulin Ratio 1.3 (0.9-2); Albumin Level 3.5 gm/dl (3.4-5.0); BUN Creatinine Ratio 10.1 (10-20); Bilirubin,Total 0.6 mg/dl (0.2-1.0); Calcium 7.6 mg/dl (8.5-10.1); Creatinine Clr Calc Pharmacy 42.9 ml/min; Est GFR (African American) 61.5 ml/min; Est GFR (Non-African American) 53.1 ml/min; Globulin 2.8 gm/dl (2.5-4.0); Magnesium 1.9 mg/dl (1.7-2.4); Potassium 3.5 mmol/L (3.5-5.1); Total Protein 6.3 gm/dl (6.0-8.3)
[2022-01-16] MEDS ORDERED: cefTRIAXone SODIUM 1,000 MG in DEXTROSE 5% 50 ML IV SCH (12:00)
[2022-01-16 12:31] LABS: Estimated Average Glucose 166 mg/dl; Hemoglobin A1C 7.4 % (4.5-5.6)
[2022-01-16] MEDS ORDERED: AMOXICILLIN 500 MG CAP PO STA (14:51)
--- NOTE | 2022-01-16 15:44 | Discharge Summary ---
Date of Service January 16, 2022 Admission HPI Per Admitting Provider Kristine Ohara is an 81-year-old female with a past medical history significant for hypertension, hyperlipidemia, diabetes, pression, and osteoporosis who presents today with weakness and fatigue. evening, she went for her usual walk around the neighborhood, but felt very fatigued and was unable to complete it. Also had onset of a dry cough, fever/chills that started Sunday, a right sided frontal headache, and mild nausea, which has made it hard for her to take her medications the past few days. She denies any focal weakness, numbness/tingling, chest pain, palpitations, shortness of breath, syncopal e pisodes, dizziness, isolated joint pain or edema, neck pain, abdominal pain, vomiting, diarrhea, or constipation. She states she is outside in her yard often watering her many antunez, but has not been in the purcell lately and typically is not. She does not recall having any ticks on her lately, but at bedside reports she had a red patch on the back of her neck this week which is now resolved. In ED, vital signs within normal limits, stable. Labs significant for sodium of 127 and a magnesium of 1.4. Rajendra also level 8 at 190. AST mildly elevated at 45. UA with bacteria, leuk esterase and white blood cells. Lyme IgM positive. COVID/influenza AMB/RSV negative. Principal Diagnosis 1. Lyme disease 2. UTI-probable enterococcus 3. Hyponatremia-improved with hydration 4. Hypomagnesemia-resolved Discharge Exam GENERAL: 81 yo Well-developed, well-nourished elderly WF. NAD. LUNGS: Clear to auscultation bilaterally. No W/R/R. CARDIOVASCULAR: Regular rate and rhythm. No M/G/R. No JVD. ABDOMEN: Soft, non-tender and non-distended. BS normoactive x 4 quad. EXTREMITIES: No edema. Non-tender. Peripheral pulses +2/4. NEUROLOGIC: A&O x3. Nonfocal PSYCHIATRIC: Cooperative. Appropriate mood and affect. SKIN: Warm, dry, intact. No visible rash concerning for EM. No lesions. Discharge Data Allergies Allergy/AdvReac Type Severity Reaction Status Date / Time No Known Allergies Allergy Unverified 09/08/21 10:30 Consultations 01/15/22 12:49 ED Decision to Admit Stat Ordered Studies Spec: [id number] Collected: 01/15/22-1025 Received: 01/15/22-[address]: Elvis Mayberry MD Source: Urine,Clean Catch OV Order: Ordered: Urine Culture Procedure Result Verified Site Urine Culture Preliminary 01/16/22-1411 Organism 1 Probable Enterococcus Childress Count >100,000 CFU/ml Sens Sensitivities to Follow +Mix Urine Plus Low Counts of Other Mixed Lizeth Chest X-Ray 01/15/22 10:14 XR chest 1V portable CLINICAL HISTORY: SEPSIS TECHNIQUE: Single frontal radiograph of the chest was obtained. Comparison: None available at the time of this dictation. FINDINGS: No lines and tubes are seen. The cardiomediastinal silhouette is normal. The lungs are clear. No evidence of pleural effusion or pneumothorax. IMPRESSION: No acute chest disease. ACT 112: Negative or not required by law. Electronically signed by: Salinas Kulkarni M.D. 01/15/2022 10:37 AM Hospital Course (1) Lyme disease: - Has not noticed any ticks on her, but with red patch on neck this week. Not present now. - IgM (+), IgG (-) ; bands pending. - Received Rocephin in ED for concern for UTI which also covers or Lyme; added a procalcitonin to labs, 1.07, therefore will continue Rocephin daily to cover for UTI as well as Lyme disease. - Tylenol prn for headache. - WBCs, Hgb, PLTs all wnl, however AST mildly elevated at 45. - HR 80-90s, EKG shows NSR without any evidence for heart block. - Continue to monitor labs on daily CBC, CMP. - Placed on telemetry for low mag, monitor HR. - Preliminary urine culture growing probable enterococcus, will change abx to Amoxicillin 500mg TID x 12 more days (for total of 14 days) which will treat both Lyme + UTI (2) Elevated LFTs: - Suspect 2/2 Lyme disease, AST 45, all other liver enzymes wnl. - AST/ALT slightly elevated would encourage f/u labs as outpatient to ensure normalization-defer to pcp (3) UTI (urinary tract infection): - UA with > 30 WBCs, 2+ leuk esterase, 1+ bacteria in a contaminated sample w/ > 30 epithelial cells. Does report that she had some dysuria, low back pain earlier this month but none at present. - Procal 1.07--> continued Rocephin. - Probable enterococcus noted on preliminary urine culture, will change to Amoxicillin to cover both UTI + Lyme (4) Hyponatremia: - 127, will order serum and urine osm, urine Na. - Hold triamterene/HCTZ. - Hold further IVF pending above labs. - Suspect it is low due to poor po intake over the last few days. May be contributing to weakness. - Na improved today to 131 with IVF and holding Triamterene/HCTZ, would continue holding upon d/c as her BP is normal w/o this (5) Hypomagnesemia: - 1.4, replete w/ 3 bags Mg++ and recheck in ED. - Suspect it is low due to poor po intake over the last few days. May be contributing to weakness. - Resolved with replacement (6) HTN (hypertension): - Normotensive. - Holding HCTZ/trimaterene due to low NA, continue losartan. Again, can stop this at d/c as her BP has been normal w/o it. (7) Hyperlipidemia: - Hold atorvastatin 10 mg with bumped ast/alt - Follow up labs in 1 week to trend - Provide brief drug holiday in light of slightly elevated ast/alt (8) Diabetes: - On glimepiride 2 mg daily at home; elevated glucose on CMP 190. - Holed home meds, switch to accuchecks ACHS with SSI. - Due for A1c, will order with AM labs. (9) Osteoporosis: - Alendronate weekly, takes on Wednesdays. - Continue vitamin D supplement. You are found to be medically and hemodynamically stable for discharge. Plan as outlined above. Discharge on 12 more days of amoxicillin 500 mg 3 times a day to cover for both urinary tract infection and Lyme disease. Repeat blood work in 1 week to reassess LFTs. Hold atorvastatin. Discontinue triamterene and hydrochlorothiazide due to low sodium levels. Again, blood pressure has been normal without this medication. Advise follow-up with your primary care provider within 1 week of discharge. Above plan of care has been discussed and agreed upon with Dr. Clement who is also seen and evaluated this patient prior to discharge. Total Time Total Time Spent Total Time Spent (In Minutes): >30 minutes Discharge Plan Discharge Items Patient Disposition: Home - Self-Care Reason For Visit: LYME DISEASE,LOW MG AND NA Discharge Diagnosis: Lyme disease Urinary tract infection Activity: Resume your previous activity Non-emergency contact: Primary Care Provider Call non-emergency contact if: you have any medication questions and your symptoms worsen Follow-up/Referrals: Tereza Dejesus MD [Primary Care Provider] - Diet: Regular and Carb Consistent or DM2 Ambulatory Orders: Comprehensive Metabolic Panel (Routine) Timeframe: 1 Week Location: Determined by Patient Ordered By: Patti Aiken Attending Provider Instructions: You were hospitalized due to generalized weakness and you were found to have lab tests that show you have been recently infected with Lyme disease. This would have been transmitted through a tick bite. In addition, you were found to have a urinary tract infection. Furthermore, you were found to have a low sodium level and low magnesium level. You were started on antibiotics here in the hospital and provided IV fluids. Your numbers today have improved with hydration and replacing your magnesium level. We have STOPPED your triamterene/hydrochlorothiazide as this can lower your sodium level. Also, your blood pressure is normal without this medication. Based on the type of bacteria that is causing your urinary tract infection, you will be discharged on Amoxicillin 500mg, one table three times a day until gone. Take with food. This medication will also treat the Lyme disease. Please complete the course-no pills should be left behind. Your liver function tests were slightly elevated which is not uncommon in the setting of Lyme disease. However, we would recommend that you STOP TAKING your Atorvastatin for now and have repeat blood work in 1 week to reassess your liver function tests. I have ordered this lab and the results will be sent to your family doctor for review. You can resume your Atorvastatin when advised to do so by your pcp. We recommend that you follow up with your family doctor within 1 week of discharge. Please take all medications as outlined on your discharge instructions below. If you have any questions/concerns after you are discharged, feel free to contact the nonemergency number listed on your discharge paperwork. In the event of a medical emergency, call 911. Pending Studies at Discharge: Yes Studies:: urine culture Stand-Alone Forms: [employer], Smoking Cessation Medications and DC Order Prescriptions: New amoxicillin 500 mg capsule 500 mg PO TID Qty: 37 RF: 0 Continued sertraline 50 mg tablet 50 mg PO DAILY Qty: 90 RF: 1 losartan 25 mg tablet 25 mg PO DAILY Qty: 90 RF: 1 alendronate 70 mg tablet 70 mg PO WEEKLY Qty: 12 RF: 1 glimepiride 2 mg tablet 2 mg PO QAM Qty: 90 RF: 1 omega-3 acid ethyl esters 1 gram capsule 1 cap PO DAILY RF: 0 cholecalciferol (vitamin D3) 1,000 unit capsule 1,000 units PO DAILY RF: 0 multivitamin tablet 1 tab PO DAILY RF: 0 travoprost 0.004 % drops 1 drops OP QPM RF: 0 Discontinued triamterene-hydrochlorothiazid 37.5-25 mg capsule 1 cap PO DAILY Qty: 90 RF: 3 atorvastatin 10 mg tablet 10 mg PO DAILY Qty: 90 RF: 2 Discharge Orders: Discharge Order (Routine); Ordered 01/16/22 Ordered By: Patti Nugent Admission Data Admit Date/Time: 01/15/22 13:36 Attending Provider: Noah Clement Admit Provider: Josh Morales Primary Care Provider: Tereza Dejesus Other Providers: Javed Michelle Other Interventions: Discharge Summary Assessment (RN) Last Done: 01/16/22 13:46 Supervising Physician Co-Signing Physician Notes Patient seen and examined, chart reviewed, case discussed with Colleen Nugent PA-C and I agree with the assessment and plan as above except as otherwise noted Kristine is an 81-year-old female who presented for weakness and fatigue. She was found to be Lyme disease positive and was also found to have a UTI during admission. Given comorbid UTI cefuroxime was chosen rather than doxycycline. Patient will complete an outpatient course of antibiotics, follow-up to PCP. At time of discharge patient's breathing is unlabored, lungs are clear, distal extremity strength is intact, and heart is regular in rate and rhythm without pauses. Coding Level of Care Code D/C DAY MANAGEMENT >30 MINS Diagnoses Lyme disease A69.20 Elevated LFTs R79.89 UTI (urinary tract infection) N39.0 Hyponatremia E87.1 Hypomagnesemia E83.42 HTN (hypertension) I10 Hyperlipidemia E78.5 Diabetes E11.9 Osteoporosis M81.0
[2022-01-18 13:02] LABS: 18KDIGG Band REACTIVE; 23KDIGG Band REACTIVE; 23KDIGM Band REACTIVE; 28KDIGG Band NON-REACTIVE; 30KDIGG Band NON-REACTIVE; 39KDIGG Band NON-REACTIVE; 39KDIGM Band NON-REACTIVE; 41KDIGG Band NON-REACTIVE; 41KDIGM Band NON-REACTIVE; 45KDIGG Band NON-REACTIVE; 58KDIGG Band NON-REACTIVE; 66KDIGG Band NON-REACTIVE; 93KDIGG Band NON-REACTIVE; Lyme Antibodies, WB IgG NEGATIVE (NEGATIVE); Lyme Antibodies, WB IgM NEGATIVE (NEGATIVE)
[2022-01-18 21:27] LABS: Babesia microti DNA Not Detected (Not Detected)
== END 2022-01-16 16:01 | disposition home or self-care (01) | DRG 868 ==
LOC: ED 09:27 → 2W 13:36 → SUATTDRO 13:36 → 2W 14:42

== ENCOUNTER 2022-03-05 10:50 | Observation (INO) ==
[2022-03-05] MEDS ORDERED: SODIUM CHLORIDE 0.9% 1000ML 1,000 ML IV SCH (11:30)
--- NOTE | 2022-03-05 11:50 | XRay Report ---
XR chest 1V portable CLINICAL HISTORY: Stroke Like Symptoms. Evaluate cardiopulmonary status COMPARISON STUDY: 01/15/2022 TECHNIQUE: 1 view of the chest FINDINGS: Single frontal view of the chest demonstrates the cardiomediastinal silhouette to be within normal li mits. The lungs are clear of alveolar opacities. There is no evidence for pleural effusion. There is no evidence for vascular congestion. There is no acute osseous pathology. IMPRESSION: 1. No acute cardiopulmonary disease. ACT 112: Negative or not required by law. Electronically signed by: Semaj Gil M.D. 03/05/2022 11:49 AM
[2022-03-05 11:56] LABS: Basophils # (auto) 0.07 K/uL (0-0.2); Basophils % (auto) 0.9 %; Eosinophils # (auto) 0.17 K/uL (0-0.50); Eosinophils % (auto) 2.1 %; Hemoglobin 13.1 g/dl (12.0-16.0); Immature Granulocytes # (auto) 0.02 K/uL (0.00-0.02); Immature Granulocytes % (auto) 0.2 %; Lymphocytes # (auto) 1.79 K/uL (1.2-3.4); Lymphocytes % (auto) 21.9 %; Mean Corpuscular Hemoglobin 29.4 pg (25.0-34.0); Mean Corpuscular Hgb Conc 33.6 g/dL (32.0-36.0); Mean Corpuscular Volume 87.6 fL (80.0-100.0); Mean Platelet Volume 9.6 fL (9.4-12.3); Monocytes # (auto) 0.42 K/uL (0.24-0.82); Monocytes % (auto) 5.1 %; Neutrophils % (auto) 69.8 %; Platelet Count 220 K/uL (130-400); RDW Coefficient of Variation 13.1 % (11.5-14.5); RDW Standard Deviation 41.5 fL (36.4-46.3); Red Blood Count 4.45 M/uL (3.93-5.22); White Blood Count 8.17 K/ul (4.8-10.8)
[2022-03-05 12:11] LABS: Partial Thromboplastin Ratio 0.9; Partial Thromboplastin Time 24.8 Seconds (21.0-31.0)
[2022-03-05 12:18] LABS: Albumin Globulin Ratio 1.3 (0.9-2); Albumin Level 4.1 gm/dl (3.4-5.0); BUN Creatinine Ratio 13.6 (10-20); Bilirubin,Total 0.6 mg/dl (0.2-1.0); Calcium 9.1 mg/dl (8.5-10.1); Creatinine Clr Calc Pharmacy 37.5 ml/min; Est GFR (African American) 54.1 ml/min; Est GFR (Non-African American) 46.7 ml/min; Globulin 3.1 gm/dl (2.5-4.0); Magnesium 1.6 mg/dl (1.7-2.4); Potassium 4.5 mmol/L (3.5-5.1); Total Protein 7.2 gm/dl (6.0-8.3)
[2022-03-05 12:22] LABS: Troponin I High Sensitivity 7.4 pg/ml (0-14)
--- NOTE | 2022-03-05 12:55 | Emergency Department Note ---
Impression & Plan Stroke-like symptoms, Headache, Lyme disease, Intracranial mass ED Provider Note INFORMANT: Patient ED PROVIDER(S): Jacob Barros MD CHIEF COMPLAINT: Headache PLAN: Disposition: Admitted Condition: Good Outpatient prescription management: none Referral: None MEDICAL DECISION MAKING: Patient presented with strokelike symptoms. Work-up was initiated. Her CBC and chemistry panel was unremarkable the patient was not within the window for thrombolytics. Patient's ECG was normal. CT angiography of the head and neck were performed. No acute stroke was noted however there was an intracranial mass appreciated with compression on the sagittal sinus. Patient and family were informed. Further work-up will be necessary in the hospital. Patient was also found to have a positive Lyme IgG and IgM. She was given a dose of IV Rocephin. Western blot was sent. [facility] Patient was evaluated in the ER and admitted for further management Triage Nursing notes reviewed and agree them. Vital Signs: reviewed and remarkable for no significant abnormalities Differential diagnosis: CVA, migraine headache, meningitis, sinusitis, CO exposure, ICH, SAH, infection, tumor, headache, sinus thrombosis, arterial dissection, as well as other pathologies. Diagnostics interpreted by me: EC Lead ECG performed and revealed Normal sinus rhythm at 80, normal Dugger, QRS normal. No elevation or depression. No PACs or PVCs Cardiac Monitoring: Cardiac monitoring ordered by me: The patient was placed on continuous cardiac monitoring and observed. It revealed a normal sinus rhythm at 81 beats per minute without ectopy or evidence of dysrhythmia. Imaging studies: CT angiography as noted below. I refer you to the EMR for further details. HPI: The patient is a 81year old female who presents to the Emergency Room with complaints of headache. This started 2 days ago and is fluctuating. The patient also notes the following associated symptoms, numbness in the right foot, arm, and face.. The patient has found no relieving factors. Current pain is rated as 8/10. Patient denies trauma. Patient did note some difficulty walking with weakness in the right leg. Pt denies LOC, history of stroke, fevers, chills, diaphoresis, visual changes, neck pain, chest pain, breathing difficulties, nausea, vomiting, abdominal pain, back pain, melena, hematochezia, urinary symptoms, lymphadenopathy, rash, or other complaints. ROS: See above HPI for pertinent positives & negatives. A total of 10 systems reviewed and were otherwise negative. PAST MEDICAL HISTORY:See Below , hypertension PAST SURGICAL HISTORY:See Below, FAMILY HISTORY:See Below SOCIAL HISTORY:See Below, HOME MEDICATIONS:See Below ALLERGIES:See Below VITALS:See Below PHYSICAL EXAMINATION: GENERAL: Awake, alert, well-appearing, in no distress HENT: Normocephalic, atraumatic. Oropharynx unremarkable. EYES: Normal conjunctiva. Sclera non-icteric. PERRLA. EOMI. NECK: Inspection normal. Non-tender. Supple. No nuchal rigidity. FROM. No masses. RESPIRATORY: Clear to auscultation. No wheezes. No rales. Normal respiratory effort. CARDIAC: Normal rate. Normal rhythm. No murmurs. No rubs. Extremities warm and well perfused. Pulses equal. No JVD. GI: Soft, non-distended. No tenderness to palpation. No rebound or guarding. No masses. RECTAL: Deferred. MUSCULOSKELETAL: Atraumatic. Chest examination reveals no tenderness. The back is symmetrical on inspection without obvious abnormality. There is no CVA ten derness to palpation. No joint edema. LOWER EXTREMITIES: Calves are equal size bilaterally and non-tender. No edema. No discoloration. NEURO: Normal sensorium. Patient notes some tingling in the right lower face. No other sensory deficits noted. There are some mild weakness appreciated in the right leg. SKIN: No rash or jaundice noted. Jaocb Barros MD Past Med/Surg History Medical History Diabetes mellitus type II, controlled HTN (hypertension) Hyperlipidemia Osteoporosis Surgical History Hx of shoulder surgery Family History Sister Colorectal cancer Mother Diabetes Heart disease Hypertension Denies family history of Ovarian cancer Prostate cancer Myocardial infarction Breast cancer Social History Smoking Status: Never smoker Second Hand Exposure: Yes; Hx Alcohol Use: No Hx Substance Use: No Preferred Language: Cymro Communication Ability: Effective Director Of Communications Required: No Beliefs That Will Affect Care: None marital status: Current Living Situation: Spouse current occupational status: retired How many Children do You have: 3 Feels Safe at Home: Yes Childhood Exposure to Second-Hand Smoke: No caffeine: Yes Dental Care, Regularly: No Physical Activity Frequency: Daily Seatbelt Use: always Sunscreen Use: Yes (sometimes) Assistive Devices: None Allergies Allergies Allergy/AdvReac Type Severity Reaction Status Date / Time No Known Allergies Allergy Unverified 01/20/22 11:50 Home Meds Home Medications Medication Instructions Recorded Confirmed cholecalciferol (vitamin D3) 25 1,000 units PO DAILY 05/23/19 01/20/22 mcg (1,000 unit) capsule multivitamin 1 tab PO DAILY 05/23/19 01/20/22 omega-3 acid ethyl esters 1 gram 1 cap PO DAILY 05/23/19 01/20/22 capsule travoprost 0.004 % eye drops 1 drops ophthalmic (eye) QPM 05/23/19 01/20/22 Previous Rx's Medication Instructions Recorded losartan 25 mg tablet 25 mg PO DAILY #90 tabs 09/23/21 sertraline 50 mg tablet 50 mg PO DAILY #90 tabs 09/23/21 alendronate 70 mg tablet 70 mg PO WEEKLY #12 tabs 12/12/21 glimepiride 2 mg tablet 2 mg PO QAM #90 tabs 01/02/22 amoxicillin 500 mg capsule 500 mg PO TID #37 caps 01/16/22 Results & Data (ED) Vital Signs Vital Signs - 24 hr 03/05/22 10:55 03/05/22 12:00 03/05/22 12:01 Temperature 36.6 C Temperature Source Temporal Artery Scan Pulse Rate 92 H 81 Pulse Rate from SpO2 Sensor 81 Respiratory Rate 16 24 Respiratory Effort / Characteristics Non-Labored Spontaneous Respiratory Depth Normal Respiratory Pattern Regular Blood Pressure 198/98 H 168/87 H Blood Pressure Mean 131 114 Blood Pressure Position Sitting Pulse Oximetry 94 93 Oxygen Delivery Method Room Air Sepsis Recent Fever Within 48 Hours No Sepsis New/Unexplained Change in Mental Status No Sepsis Action Taken by Nursing No Action Required 03/05/22 12:30 03/05/22 12:30 03/05/22 13:13 Temperature Temperature Source Pulse Rate 79 116 H Pulse Rate from SpO2 Sensor 78 Respiratory Rate 17 20 Respiratory Effort / Characteristics Respiratory Depth Respiratory Pattern Blood Pressure 157/88 H Blood Pressure Mean 111 Blood Pressure Position Pulse Oximetry 93 Oxygen Delivery Method Sepsis Recent Fever Within 48 Hours Sepsis New/Unexplained Change in Mental Status Sepsis Action Taken by Nursing 03/05/22 13:30 03/05/22 13:30 03/05/22 14:00 Temperature Temperature Source Pulse Rate 88 Pulse Rate from SpO2 Sensor 88 Respiratory Rate 19 Respiratory Effort / Characteristics Respiratory Depth Respiratory Pattern Blood Pressure 159/82 H 171/94 H Blood Pressure Mean 107 119 Blood Pressure Position Pulse Oximetry 93 Oxygen Delivery Method Sepsis Recent Fever Within 48 Hours Sepsis New/Unexplained Change in Mental Status Sepsis Action Taken by Nursing 03/05/22 14:00 Temperature Temperature Source Pulse Rate 86 Pulse Rate from SpO2 Sensor 86 Respiratory Rate 22 Respiratory Effort / Characteristics Respiratory Depth Respiratory Pattern Blood Pressure Blood Pressure Mean Blood Pressure Position Pulse Oximetry 94 Oxygen Delivery Method Sepsis Recent Fever Within 48 Hours Sepsis New/Unexplained Change in Mental Status Sepsis Action Taken by Nursing Laboratory Data Result diagrams: 03/05/22 11:39 03/05/22 11:39 Lab Results 03/05/22 03/05/22 03/05/22 Range/Units 11:39 11:39 11:39 WBC 8.17 (4.8-10.8) K/ul RBC 4.45 (3.93-5.22) M/uL Hgb 13.1 (12.0-16.0) g/dl Hct 39.0 (34.1-44.9) % MCV 87.6 (80.0-100.0) fL MCH 29.4 (25.0-34.0) pg MCHC 33.6 (32.0-36.0) g/dL RDW Std Deviation 41.5 (36.4-46.3) fL RDW Coeff of Cecilio 13.1 (11.5-14.5) % Plt Count 220 (130-400) K/uL MPV 9.6 (9.4-12.3) fL Immature Gran % (Auto) 0.2 % Neut % (Auto) 69.8 % Lymph % (Auto) 21.9 % [place] % (Auto) 5.1 % Eos % (Auto) 2.1 % Baso % (Auto) 0.9 % Neut # (Auto) 5.70 (1.4-6.5) K/uL Lymph # (Auto) 1.79 (1.2-3.4) K/uL [place] # (Auto) 0.42 (0.24-0.82) K/uL Eos # (Auto) 0.17 (0-0.50) K/uL Baso # (Auto) 0.07 (0-0.2) K/uL Immature Gran # (Auto) 0.02 (0.00-0.02) K/uL PT 11.0 (9.0-12.0) Seconds INR 1.0 (0.9-1.1) APTT 24.8 (21.0-31.0) Seconds PTT Ratio 0.9 Sodium 137 (136-145) mmol/L Potassium 4.5 (3.5-5.1) mmol/L Chloride 104 (98-107) mmol/L Carbon Dioxide 24 (21-32) mmol/L Anion Gap 9 (3-11) BUN 15 (6-23) mg/dl Creatinine 1.10 (0.6-1.2) mg/dl Est Cr Clr Drug Dosing 37.5 ml/min Est GFR ( Amer) 54.1 ml/min Est GFR (Non-Af Amer) 46.7 ml/min BUN/Creatinine Ratio 13.6 (10-20) Glucose 172 H (70-99(Fasting)) mg/dl Calcium 9.1 (8.5-10.1) mg/dl Magnesium 1.6 L (1.7-2.4) mg/dl Total Bilirubin 0.6 (0.2-1.0) mg/dl AST 34 (13-39) U/L ALT 33 (7-52) U/L Alkaline Phosphatase 63 (34-104) U/L Troponin I High Sens 7.4 D (0-14) pg/ml Total Protein 7.2 (6.0-8.3) gm/dl Albumin 4.1 (3.4-5.0) gm/dl Globulin 3.1 (2.5-4.0) gm/dl Albumin/Globulin Ratio 1.3 (0.9-2) Lyme Disease IgG Ab (Negative) Lyme Disease IgM Ab (Negative) SARS-CoV-2, RNA, NAAT (NEGATIVE) 03/05/22 03/05/22 Range/Units 11:39 15:13 WBC (4.8-10.8) K/ul RBC (3.93-5.22) M/uL Hgb (12.0-16.0) g/dl Hct (34.1-44.9) % MCV (80.0-100.0) fL MCH (25.0-34.0) pg MCHC (32.0-36.0) g/dL RDW Std Deviation (36.4-46.3) fL RDW Coeff of Cecilio (11.5-14.5) % Plt Count (130-400) K/uL MPV (9.4-12.3) fL Immature Gran % (Auto) % Neut % (Auto) % Lymph % (Auto) % [place] % (Auto) % Eos % (Auto) % Baso % (Auto) % Neut # (Auto) (1.4-6.5) K/uL Lymph # (Auto) (1.2-3.4) K/uL [place] # (Auto) (0.24-0.82) K/uL Eos # (Auto) (0-0.50) K/uL Baso # (Auto) (0-0.2) K/uL Immature Gran # (Auto) (0.00-0.02) K/uL PT (9.0-12.0) Seconds INR (0.9-1.1) APTT (21.0-31.0) Seconds PTT Ratio Sodium (136-145) mmol/L Potassium (3.5-5.1) mmol/L Chloride (98-107) mmol/L Carbon Dioxide (21-32) mmol/L Anion Gap (3-11) BUN (6-23) mg/dl Creatinine (0.6-1.2) mg/dl Est Cr Clr Drug Dosing ml/min Est GFR ( Amer) ml/min Est GFR (Non-Af Amer) ml/min BUN/Creatinine Ratio (10-20) Glucose (70-99(Fasting)) mg/dl Calcium (8.5-10.1) mg/dl Magnesium (1.7-2.4) mg/dl Total Bilirubin (0.2-1.0) mg/dl AST (13-39) U/L ALT (7-52) U/L Alkaline Phosphatase (34-104) U/L Troponin I High Sens (0-14) pg/ml Total Protein (6.0-8.3) gm/dl Albumin (3.4-5.0) gm/dl Globulin (2.5-4.0) gm/dl Albumin/Globulin Ratio (0.9-2) Lyme Disease IgG Ab Positive A (Negative) Lyme Disease IgM Ab Positive A (Negative) SARS-CoV-2, RNA, NAAT NEGATIVE (NEGATIVE) Administered Medications Sodium Chloride (Nss 1000ml) 1,000 mls @ 50 mls/hr IV .Q20H TOM Stop: 04/04/22 11:29 Last Admin: 03/05/22 11:59 Dose: 50 mls/hr Documented By: ILIR Discontinued Medications Acetaminophen (Acetaminophen 325 Mg Tab) 650 mg PO NOW STA Stop: 03/05/22 14:30 Last Admin: 03/05/22 14:53 Dose: 650 mg Documented By: ILIR Gadobutrol (Gadobutrol 30ml Vial) 7.1 ml IV ONCE ONE Stop: 03/05/22 16:16 Last Admin: 03/05/22 16:14 Dose: 7.1 ml Documented By: MELINDA Ceftriaxone Sodium (Rocephin) 2,000 mg in 70 mls @ 140 mls/hr IV NOW STA Stop: 03/05/22 14:19 Last Infusion: 03/05/22 14:35 Dose: 0 mls/hr Documented By: Admin: 03/05/22 14:03 Dose: 140 mls/hr Documented By: ILIR Ioversol (Optiray 300 500ml) 117 ml IV ONCE ONE Stop: 03/05/22 13:09 Last Admin: 03/05/22 13:09 Dose: 117 ml Documented By: JANETHK Imaging Data Radiologist's Impression: Chest X-Ray 03/05/22 11:17 XR chest 1V portable CLINICAL HISTORY: Stroke Like Symptoms. Evaluate cardiopulmonary status COMPARISON STUDY: 01/15/2022 TECHNIQUE: 1 view of the chest FINDINGS: Single frontal view of the chest demonstrates the cardiomediastinal silhouette to be within normal limits. The lungs are clear of alveolar opacities. There is no evidence for pleural effusion. There is no evidence for vascular congestion. There is no acute osseous pathology. IMPRESSION: 1. No acute cardiopulmonary disease. ACT 112: Negative or not required by law. Electronically signed by: Semaj Gil M.D. 03/05/2022 11:[address] 03/05/22 11:17 CT head/brain wo con CLINICAL HISTORY: Stroke Like Symptoms COMPARISON STUDY: No previous studies for comparison. CT DOSE: TECHNIQUE: Standard CT of the Brain was performed without IV contrast. A dose lowering technique was utilized adhering to the principles of ALARA. FINDINGS: Extraaxial space: There is no evidence for subdural hematoma. There are no extra-axial fluid collections. Ventricles and cisterns: The ventricles are mildly dilated bilaterally. There is no evidence for midline shift or mass effect. Parenchyma: There is no subarachnoid or intraparenchymal hemorrhage. There is no evidence for an acute infarct or cerebral edema. There is mild cerebral cortical atrophy and decreased attenuation in the periventricular white matter representing remote small vessel disease. There are no gross mass lesions. Osseous structures: There is no evidence for an acute fracture. The visualized paranasal sinuses are clear. The mastoid air cells are clear bilaterally. Soft tissues: There is no evidence for focal soft tissue swelling. IMPRESSION: 1. No acute intracerebral pathology. 2. Mild cerebral cortical atrophy and remote small vessel disease. ACT 112: Negative or not required by law. Electronically signed by: Semaj Gil M.D. 03/05/2022 1:29 PM Head CTA 03/05/22 11:17 CT angio head w con CLINICAL HISTORY: Stroke Like Symptoms COMPARISON STUDY: Noncontrast CT from 03/05/2022 CT DOSE: 949.45 mGy.cm TECHNIQUE: CT Angio of the brain was performed.followed by image post processing with coronal, and sagittal MIP reformats. Contrast Volume: Optiray 300, 117 ml FINDINGS: Vascular findings: There is normal enhancement within the internal carotid arteries bilaterally. On the left side, there is normal enhancement noted within the anterior, middle and posterior cerebral arteries. On the right side, there is atherosclerotic narrowing of the A1 segment of the right anterior cerebral artery. No evidence for occlusion is seen. There is anatomic filling of the distal anterior cerebral artery. The right middle cerebral artery and posterior cerebral arteries are patent. Nonvascular findings: There is homogeneous attenuation of the brain parenchyma bilaterally. There is no evidence for an acute infarct or cerebral edema. IMPRESSION: 1. 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 2. Otherwise, negative CTA of the brain. ACT 112: Negative or not required by law. Electronically signed by: Semaj Gil M.D. 03/05/2022 1:34 PM Neck CTA 03/05/22 11:17 CT angio neck with con CLINICAL HISTORY: Stroke Like Symptoms COMPARISON STUDY: No previous studies for comparison. CT DOSE: TECHNIQUE: CT Angio of the neck was performed.followed by image post processing with coronal, and sagittal MIP reformats.. Stenosis assessment by NASCET criteria. Contrast Volume: Optiray 300, 117 ml FINDINGS: Vascular findings: Right common carotid artery: Patent without significant stenosis. Right internal carotid artery: Patent without significant stenosis. Right vertebral artery: Patent without significant stenosis. Left common carotid artery: Patent without significant stenosis. There is minimal atherosclerotic plaque at the carotid bulb. Left internal carotid artery: Patent without significant stenosis. Left vertebral artery: Patent without significant stenosis. The left vertebral artery is slightly patent when compared to the right. Nonvascular findings: The parotid and submandibular salivary glands appear normal. There is no enlarged cervical adenopathy noted. The airway appears patent. The thyroid gland appears within normal limits. Mild centrilobular emphysematous changes are present involving the lung apices.. Impression: 1. Essentially negative CT angiogram of the neck with contrast. ACT 112: Negative or not required by law. Electronically signed by: Semaj iGl M.D. 03/05/2022 1:37 PM Discharge Plan Visit Data Chief Complaint: Headache Stated Complaint: HEADACHE, NUMBNESS ON RT SIDE ED Provider: Jacob Barros Discharge Problem: Stroke-like symptoms, Headache, Lyme disease, Intracranial mass Forms Stand Alone Forms: [facility] [employer] Prescriptions Prescriptions: No Action sertraline 50 mg tablet 50 mg PO DAILY Qty: 90 1RF losartan 25 mg tablet 25 mg PO DAILY Qty: 90 1RF alendronate 70 mg tablet 70 mg PO WEEKLY Qty: 12 1RF Rx Instructions: Takes on Wednesdays glimepiride 2 mg tablet 2 mg PO QAM Qty: 90 1RF Rx Instructions: administer with breakfast omega-3 acid ethyl esters 1 gram capsule 1 cap PO DAILY cholecalciferol (vitamin D3) 1,000 unit capsule 1,000 units PO DAILY multivitamin tablet 1 tab PO DAILY travoprost 0.004 % drops 1 drops OP QPM amoxicillin 500 mg capsule 500 mg PO TID Qty: 37 0RF Referrals Referrals: Tereza Dejesus MD [Primary Care Provider] -
[2022-03-05] MEDS ORDERED: OPTIRAY 300 500mL IV ONE (13:08)
[2022-03-05 13:24] LABS: Lyme Ab IgG w/WB Rflx Positive (Negative)
[2022-03-05 13:25] LABS: Lyme Ab IgM w/WB Rflx Positive (Negative)
--- NOTE | 2022-03-05 13:30 | CT Scan Report ---
CT head/brain wo con CLINICAL HISTORY: Stroke Like Symptoms COMPARISON STUDY: No previous studies for comparison. CT DOSE: TECHNIQUE: Standard CT of the Brain was performed without IV contrast. A dose lowering technique was utilized adhering to the principles of ALARA. FINDINGS: Extraaxial space: There is no evidence for subdural hematoma. There are no extra-axial fluid collecti ons. Ventricles and cisterns: The ventricles are mildly dilated bilaterally. There is no evidence for midl ine shift or mass effect. Parenchyma: There is no subarachnoid or intraparenchymal hemorrhage. There is no evidence for an acut e infarct or cerebral edema. There is mild cerebral cortical atrophy and decreased attenuation in the periventricular white matter representing remote small vessel disease. There are no gross mass lesio ns. Osseous structures: There is no evidence for an acute fracture. The visualized paranasal sinuses are clear. The mastoid air cells are clear bilaterally. Soft tissues: There is no evidence for focal soft tissue swelling. IMPRESSION: 1. No acute intracerebral pathology. 2. Mild cerebral cortical atrophy and remote small vessel disease. ACT 112: Negative or not required by law. Electronically signed by: Semaj Gil M.D. 03/05/2022 1:29 PM
--- NOTE | 2022-03-05 13:36 | CT Scan Report ---
CT angio head w con CLINICAL HISTORY: Stroke Like Symptoms COMPARISON STUDY: Noncontrast CT from 03/05/2022 CT DOSE: 949.45 mGy.cm TECHNIQUE: CT Angio of the brain was performed.followed by image post processing with coronal, and s agittal MIP reformats. Contrast Volume: Optiray 300, 117 ml FINDINGS: Vascular findings: There is normal enhancement within the internal carotid arteries bilaterally. On the left side, there is normal enhancement noted within the anterior, middle and posterior cerebral a rteries. On the right side, there is atherosclerotic narrowing of the A1 segment of the right anterior cerebra l artery. No evidence for occlusion is seen. There is anatomic filling of the distal anterior cerebra l artery. The right middle cerebral artery and posterior cerebral arteries are patent. Nonvascular findings: There is homogeneous attenuation of the brain parenchyma bilaterally. There is no evidence for an acute infarct or cerebral edema. IMPRESSION: 1. 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 2. Otherwise, negative CTA of the brain. ACT 112: Negative or not required by law. Electronically signed by: Semaj Gil M.D. 03/05/2022 1:34 PM
--- NOTE | 2022-03-05 13:39 | CT Scan Report ---
CT angio neck with con CLINICAL HISTORY: Stroke Like Symptoms COMPARISON STUDY: No previous studies for comparison. CT DOSE: TECHNIQUE: CT Angio of the neck was performed.followed by image post processing with coronal, and sa gittal MIP reformats.. Stenosis assessment by NASCET criteria. Contrast Volume: Optiray 300, 117 ml FINDINGS: Vascular findings: Right common carotid artery: Patent without significant stenosis. Right internal carotid artery: Patent without significant stenosis. Right vertebral artery: Patent without significant stenosis. Left common carotid artery: Patent without significant stenosis. There is minimal atherosclerotic juan que at the carotid bulb. Left internal carotid artery: Patent without significant stenosis. Left vertebral artery: Patent without significant stenosis. The left vertebral artery is slightly pat ent when compared to the right. Nonvascular findings: The parotid and submandibular salivary glands appear normal. There is no enlarged cervical adenopathy noted. The airway appears patent. The thyroid gland appears within normal limits. Mild centrilobular emphysematous changes are present involving the lung apices.. Impression: 1. Essentially negative CT angiogram of the neck with contrast. ACT 112: Negative or not required by law. Electronically signed by: Semaj Gil M.D. 03/05/2022 1:37 PM
[2022-03-05] MEDS ORDERED: cefTRIAXone SODIUM 2,000 MG/70 ML BAG IV STA (13:50)
--- NOTE | 2022-03-05 13:52 | Electrocardiogram Report ---
Test Reason : Blood Pressure : / mmHG Vent. Rate : 080 BPM Atrial Rate : 080 BPM P-R Int : 174 ms QRS Dur : 066 ms QT Int : 368 ms P-R-T Axes : 055 006 044 degrees QTc Int : 424 ms Normal sinus rhythm Normal ECG When compared with ECG of 15-JAN-2022 10:57, No significant change was found Confirmed by Bennie Mazariegos ([id number]) on 03/05/2022 1:52:14 PM Referred By: Confirmed By:Bennie Mazariegos
[2022-03-05] MEDS ORDERED: ACETAMINOPHEN 325 MG TAB PO STA (14:29)
--- NOTE | 2022-03-05 14:35 | History & Physical Report ---
Date of Service March 05, 2022 Assessment & Plan (1) Stroke-like symptoms: Plan: Patient presents of approx 72 hours after onset of right leg weakness and numbness progressing to right arm associated with headache this morning. - DDX: TIA vs. mass vs. other - remains with right arm numbness wrist and forearm- although without sensation abnormality- could be carpral tunnel, rule out above with MRI - No focal deficits with NIHSS 0 - will start asa 81mg PO daily - Lipid panel in AM - HGB A1C in AM - ECHO with bubble study in am (2) Meningioma: Plan: Found on incidental imaging and evaluated with MRI - asymptomatic - consider neurosugial consultation or follow up imaging (3) Headache: Plan: Location frontal and resolving DDX: general headache with no relation to above vs. sinus thrombosis vs. cva vs. meningioma - MRI as above - Tylenol now - Is without any other neurological deficit or seizures (4) Abnormal head CT: Plan: 2 x 3.5 x 2.5 cm enhancing extra-axial mass lesion along the posterior left aspect of the falx at the vertex. NO previous head imaging available for comparison- await MRI original radiology impression is a Meningioma - once MRI completed discussion or follow up with neurosurgery for evaluation (5) Diabetes mellitus type II, controlled: Plan: Controlled - hold oral agents - transition to lose sliding scale aspart goal < 180mg/dl (6) HTN (hypertension): Plan: Controlled normally well with GAYLA - Follow while in house - if CVA present allow for permissive HTN (7) Hyperlipidemia: Plan: Continue fish oil- lipid panel 02/09 favorable - lipid panel in the morning- adjust or introduce statin as warranted (8) Osteoporosis: Plan: Continue Alendronate and Cholecalciferol (9) Hypomagnesemia: Plan: Mag 1.6 repleted with 3GM mag History of Present Illness Primary Care Provider: Tereza Dejesus MD 81 YOF with medical history of: Hyponatremia, HTN, HLD, DMII, Osteopetrosis. Patient came to the EMD today for headache. The headache woke her up this morning. It was sharp and throbbing that started left frontal and then progressed to bifrontal across front of head. This was associated with some vomiting this morning following glass of water. She then took ibuprofen and went back to sleep. Her also gave her 2 baby aspirin last night before bed for her right arm and leg tingling. As this did not improve she came here. Patient also states that on Saturday 03/03 the patient was husking corn and boiling it for ~ 3 hours, and that night she had onset of right foot weakness that progressed up her right leg and then to her right arm. She reports that this has resolved but occasionally will still get some right arm tingling that also sometimes wakes her up at night. She states that her headache is resolving and is much better than before. In the [facility] the patient had routine labs performed to include lyme, and had a CT scan of head, and CTA of the head and neck performed. CTA of the head and neck notable for possible meningioma. Will obtain MRI w/wo to rule out CVA as well as better evaluate suspected meningioma. For her blood pressure she has been checking it at home and has been in the 120-150 range. She had her HCTZ discontinued last admission secondary to hyponatremia. Will follow in house. Patient will be admitted to medical telemetry to continue to rule out above process. COVID test on admission is: Pending Lyme was re-tested in [facility]- previously checked in December admission- with only 2 bands. Allergies Allergy/AdvReac Type Severity Reaction Status Date / Time No Known Allergies Allergy Unverified 01/20/22 11:50 Home Medications Medication Instructions Recorded Confirmed Type cholecalciferol (vitamin D3) 25 1,000 units PO DAILY 05/23/19 03/05/22 History mcg (1,000 unit) capsule multivitamin 1 tab PO DAILY 05/23/19 03/05/22 History omega-3 acid ethyl esters 1 gram 1 cap PO DAILY 05/23/19 03/05/22 History capsule travoprost 0.004 % eye drops 1 drops ophthalmic (eye) QPM 05/23/19 03/05/22 History losartan 25 mg tablet 25 mg PO DAILY #90 tabs 09/23/21 03/05/22 Rx sertraline 50 mg tablet 50 mg PO DAILY #90 tabs 09/23/21 03/05/22 Rx alendronate 70 mg tablet 70 mg PO WEEKLY #12 tabs 12/12/21 03/05/22 Rx glimepiride 2 mg tablet 2 mg PO QAM #90 tabs 01/02/22 03/05/22 Rx amoxicillin 500 mg capsule 500 mg PO TID #37 caps 01/16/22 03/05/22 Rx Past Med/Surg History Medical History Diabetes mellitus type II, controlled HTN (hypertension) Hyperlipidemia Osteoporosis Surgical History Hx of shoulder surgery Family History Sister Colorectal cancer Mother Diabetes Heart disease Hypertension Denies family history of Ovarian cancer Prostate cancer Myocardial infarction Breast cancer Social History Smoking Status: Never smoker Second Hand Exposure: Yes; Hx Alcohol Use: No Hx Substance Use: No Preferred Language: Australian Communication Ability: Effective School Librarian Required: No Beliefs That Will Affect Care: None marital status: Current Living Situation: Spouse current occupational status: retired How many Children do You have: 3 Feels Safe at Home: Yes Childhood Exposure to Second-Hand Smoke: No caffeine: Yes Dental Care, Regularly: No Physical Activity Frequency: Daily Seatbelt Use: always Sunscreen Use: Yes (sometimes) Assistive Devices: None Review of Systems Review of Systems: REVIEW OF SYSTEMS: Constitutional: No fever, sweats or chills Eyes: No diplopia, no worsening or blurred vision ENT: (+) headache, normal hearing, no trouble swallowing Respiratory: No cough, sputum, dyspnea at rest or on exertion Cardiovascular: No chest pain, tightness or palpitations Abdomen: No pain, nausea, vomiting, diarrhea or constipation Musculoskeletal: No joint pain, calf pain, swelling Neurologic: (+) right leg and arm weakness, numbness/tingling, or balance prob lems Psychiatric: No anxiety or depression Skin: No rash or itch Physical Exam Physical Exam: PHYSICAL EXAM: General: awake, alert, no apparent distress Head: Headache 2/10 bifrontal- at worst 7/10, Normocephalic, atraumatic ENT: PERRLA, EOMI, no pharyngeal exudate, mucous membranes moist Neuro: AAO x 3, speech clear and appropriate, strength intact bilaterally 5/5, sensation intact and equal all extremities and dermatomes, no pronator drift, remains with some right arm tingling, no ataxia, finger to nose intact, no diffiuclty reading, or aphasia noted Chest: equal rise and fall of the chest, no accessory muscle use, no heaves or thrills, Clear to auscultation, on room air, Cardiac: Regular rate and rhythm, telemetry reviewed, skin warm dry, cap refill <3 seconds, peripheral pulses +2 no JVD, no murmur, no edema GI: NABS x 4 quadrants, soft, nontender to palpation, no rebound, guarding or tenderness : Spontaneously voiding, no pain, no CVA tenderness, Extremities: Normal inspection, no peripheral edema or erythema, calfs nontender to palpation Psych: Normal mood and affect Skin: no rash or erythema Results & Data Results & Data ([facility]) Vital Signs (Past 12 Hours) Vital Signs Temp Pulse Resp BP Pulse Ox O2 Del Method 03/05/22 14:00 86 22 94 03/05/22 14:00 171/94 H 03/05/22 13:30 88 19 93 03/05/22 13:30 159/82 H 03/05/22 13:13 116 H 20 03/05/22 12:30 79 17 93 03/05/22 12:30 157/88 H 03/05/22 12:01 81 24 93 03/05/22 12:00 168/87 H 03/05/22 10:55 36.6 C 92 H 16 198/98 H 94 Room Air Laboratory Results Laboratory Results - last 24 hr 03/05/22 03/05/22 03/05/22 11:39 11:39 11:39 WBC 8.17 RBC 4.45 Hgb 13.1 Hct 39.0 MCV 87.6 MCH 29.4 MCHC 33.6 RDW Std Deviation 41.5 RDW Coeff of Cecilio 13.1 Plt Count 220 MPV 9.6 Immature Gran % (Auto) 0.2 Neut % (Auto) 69.8 Lymph % (Auto) 21.9 [place] % (Auto) 5.1 Eos % (Auto) 2.1 Baso % (Auto) 0.9 Neut # (Auto) 5.70 Lymph # (Auto) 1.79 [place] # (Auto) 0.42 Eos # (Auto) 0.17 Baso # (Auto) 0.07 Immature Gran # (Auto) 0.02 PT 11.0 INR 1.0 APTT 24.8 PTT Ratio 0.9 Sodium 137 Potassium 4.5 Chloride 104 Carbon Dioxide 24 Anion Gap 9 BUN 15 Creatinine 1.10 Est Cr Clr Drug Dosing 37.5 Est GFR ( Amer) 54.1 Est GFR (Non-Af Amer) 46.7 BUN/Creatinine Ratio 13.6 Glucose 172 H Calcium 9.1 Magnesium 1.6 L Total Bilirubin 0.6 AST 34 ALT 33 Alkaline Phosphatase 63 Troponin I High Sens 7.4 D Total Protein 7.2 Albumin 4.1 Globulin 3.1 Albumin/Globulin Ratio 1.3 Lyme Disease IgG Ab Lyme IgG (Western Blot) Lyme IgG 18 kDa Band Lyme IgG 23 kDa Band Lyme IgG 28 kDa Band Lyme IgG 30 kDa Band Lyme IgG 39 kDa Band Lyme IgG 41 kDa Band Lyme IgG 45 kDa Band Lyme IgG 58 kDa Band Lyme IgG 66 kDa Band Lyme IgG 93 kDa Band Lyme IgM Ab (WB) Lyme Disease IgM Ab Lyme IgM 23 kDa Band Lyme IgM 39 kDa Band Lyme IgM 41 kDa Band 03/05/22 03/05/22 11:39 11:39 WBC RBC Hgb Hct MCV MCH MCHC RDW Std Deviation RDW Coeff of Cecilio Plt Count MPV Immature Gran % (Auto) Neut % (Auto) Lymph % (Auto) [place] % (Auto) Eos % (Auto) Baso % (Auto) Neut # (Auto) Lymph # (Auto) [place] # (Auto) Eos # (Auto) Baso # (Auto) Immature Gran # (Auto) PT INR APTT PTT Ratio Sodium Potassium Chloride Carbon Dioxide Anion Gap BUN Creatinine Est Cr Clr Drug Dosing Est GFR ( Amer) Est GFR (Non-Af Amer) BUN/Creatinine Ratio Glucose Calcium Magnesium Total Bilirubin AST ALT Alkaline Phosphatase Troponin I High Sens Total Protein Albumin Globulin Albumin/Globulin Ratio Lyme Disease IgG Ab Positive A Lyme IgG (Western Blot) Pending Lyme IgG 18 kDa Band Pending Lyme IgG 23 kDa Band Pending Lyme IgG 28 kDa Band Pending Lyme IgG 30 kDa Band Pending Lyme IgG 39 kDa Band Pending Lyme IgG 41 kDa Band Pending Lyme IgG 45 kDa Band Pending Lyme IgG 58 kDa Band Pending Lyme IgG 66 kDa Band Pending Lyme IgG 93 kDa Band Pending Lyme IgM Ab (WB) Pending Lyme Disease IgM Ab Positive A Lyme IgM 23 kDa Band Pending Lyme IgM 39 kDa Band Pending Lyme IgM 41 kDa Band Pending Diagnostic Findings Chest X-Ray 03/05/22 11:17 XR chest 1V portable CLINICAL HISTORY: Stroke Like Symptoms. Evaluate cardiopulmonary status COMPARISON STUDY: 01/15/2022 TECHNIQUE: 1 view of the chest FINDINGS: Single frontal view of the chest demonstrates the cardiomediastinal silhouette to be within normal limits. The lungs are clear of alveolar opacities. There is no evidence for pleural effusion. There is no evidence for vascular congestion. There is no acute osseous pathology. IMPRESSION: 1. No acute cardiopulmonary disease. ACT 112: Negative or not required by law. Electronically signed by: Semaj Gil M.D. 03/05/2022 11:[address] 03/05/22 11:17 CT head/brain wo con CLINICAL HISTORY: Stroke Like Symptoms COMPARISON STUDY: No previous studies for comparison. CT DOSE: TECHNIQUE: Standard CT of the Brain was performed without IV contrast. A dose lowering technique was utilized adhering to the principles of ALARA. FINDINGS: Extraaxial space: There is no evidence for subdural hematoma. There are no extra-axial fluid collections. Ventricles and cisterns: The ventricles are mildly dilated bilaterally. There is no evidence for midline shift or mass effect. Parenchyma: There is no subarachnoid or intraparenchymal hemorrhage. There is no evidence for an acute infarct or cerebral edema. There is mild cerebral cortical atrophy and decreased attenuation in the periventricular white matter representing remote small vessel disease. There are no gross mass lesions. Osseous structures: There is no evidence for an acute fracture. The visualized paranasal sinuses are clear. The mastoid air cells are clear bilaterally. Soft tissues: There is no evidence for focal soft tissue swelling. IMPRESSION: 1. No acute intracerebral pathology. 2. Mild cerebral cortical atrophy and remote small vessel disease. ACT 112: Negative or not required by law. Electronically signed by: Semaj Gil M.D. 03/05/2022 1:29 PM Head CTA 03/05/22 11:17 CT angio head w con CLINICAL HISTORY: Stroke Like Symptoms COMPARISON STUDY: Noncontrast CT from 03/05/2022 CT DOSE: 949.45 mGy.cm TECHNIQUE: CT Angio of the brain was performed.followed by image post processing with coronal, and sagittal MIP reformats. Contrast Volume: Optiray 300, 117 ml FINDINGS: Vascular findings: There is normal enhancement within the internal carotid arteries bilaterally. On the left side, there is normal enhancement noted within the anterior, middle and posterior cerebral arteries. On the right side, there is atherosclerotic narrowing of the A1 segment of the right anterior cerebral artery. No evidence for occlusion is seen. There is anatomic filling of the distal anterior cerebral artery. The right middle cerebral artery and posterior cerebral arteries are patent. Nonvascular findings: There is homogeneous attenuation of the brain parenchyma bilaterally. There is no evidence for an acute infarct or cerebral edema. IMPRESSION: 1. 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 2. Otherwise, negative CTA of the brain. ACT 112: Negative or not required by law. Electronically signed by: Semaj Gil M.D. 03/05/2022 1:34 PM Neck CTA 03/05/22 11:17 CT angio neck with con CLINICAL HISTORY: Stroke Like Symptoms COMPARISON STUDY: No previous studies for comparison. CT DOSE: TECHNIQUE: CT Angio of the neck was performed.followed by image post processing with coronal, and sagittal MIP reformats.. Stenosis assessment by NASCET criteria. Contrast Volume: Optiray 300, 117 ml FINDINGS: Vascular findings: Right common carotid artery: Patent without significant stenosis. Right internal carotid artery: Patent without significant stenosis. Right vertebral artery: Patent without significant stenosis. Left common carotid artery: Patent without significant stenosis. There is minimal atherosclerotic plaque at the carotid bulb. Left internal carotid artery: Patent without significant stenosis. Left vertebral artery: Patent without significant stenosis. The left vertebral artery is slightly patent when compared to the right. Nonvascular findings: The parotid and submandibular salivary glands appear normal. There is no enlarged cervical adenopathy noted. The airway appears patent. The thyroid gland appears within normal limits. Mild centrilobular emphysematous changes are present involving the lung apices.. Impression: 1. Essentially negative CT angiogram of the neck with contrast. ACT 112: Negative or not required by law. Electronically signed by: Semaj Gil M.D. 03/05/2022 1:37 PM MR brain wo/w con- 03/05/2022 5:10 PM CLINICAL HISTORY: headache- possible menigioma. COMPARISON STUDY: CTA and CT of the brain without contrast from 03/05/2022 TECHNIQUE: Multiplanar multisequence images of the brain were performed before and after Gadavist, 7.1 mL of IV contrast. Diffusion weighted imaging and ADC mapping was also performed. FINDINGS: Extra-axial space: There is no evidence for a subdural hematoma, There are no extra-axial fluid collections. Ventricles and cisterns: The ventricles are normal in size and configuration. There is no evidence for midline shift or mass effect. Parenchyma: On noncontrast images, there is no evidence for an acute hemorrhage or infarct. However, there is abnormal diffusion weighted imaging and ADC mapping within the high left parietal lobe posteriorly measuring 3.5 x 2.6 cm. This can be seen on the previous CT. It is sharply defined and the findings are suspicious for a meningioma. On postcontrast images, diffuse enhancement is demonstrated. There is mild cerebral cortical atrophy. There is normal beasley-white differentiation. The remaining sulci and gyri appear normal without effacement. The midline structures are unremarkable. The posterior fossa structures appear normal. On postcontrast images, there is no other evidence for enhancing mass lesion. Osseous structures: The paranasal sinuses are well aerated. The mastoid air cells are well aerated. Soft tissues: No focal soft tissue abnormalities are identified. IMPRESSION: 1. Sharply defined, diffusely enhancing mass within the high left parietal lobe posteriorly adjacent to the meningeal surface most suspicious for a meningioma. 2. No other evidence for acute intracerebral pathology. 3. Follow-up MRI in 3-6 months is recommended to demonstrate stability. Medications Administered Sodium Chloride (Nss 1000ml) 1,000 mls @ 50 mls/hr IV .Q20H TOM Stop: 04/04/22 11:29 Last Admin: 03/05/22 11:59 Dose: 50 mls/hr Documented By: ILIR Discontinued Medications Acetaminophen (Acetaminophen 325 Mg Tab) 650 mg PO NOW STA Stop: 03/05/22 14:30 Last Admin: 03/05/22 14:53 Dose: 650 mg Documented By: ILIR Ceftriaxone Sodium (Rocephin) 2,000 mg in 70 mls @ 140 mls/hr IV NOW STA Stop: 03/05/22 14:19 Last Infusion: 03/05/22 14:35 Dose: 0 mls/hr Documented By: Admin: 03/05/22 14:03 Dose: 140 mls/hr Documented By: ILIR Ioversol (Optiray 300 500ml) 117 ml IV ONCE ONE Stop: 03/05/22 13:09 Last Admin: 03/05/22 13:09 Dose: 117 ml Documented By: EDK ECG Additional Comments: Normal sinus rhythm Normal ECG When compared with ECG of 15-JAN-2022 10:57, No significant change was found Code Status & VTE Plan Code Status CODE: FULL VTE: SCDS, Heparin 5000 units sub q VTE Prophylaxis Plan VTE Prophylaxis will be ordered: Yes Supervising Physician Co-Signing Physician Notes Attending Attestation and Admission Note: Pt seen/examined, chart reviewed, care plan d/w ASHVIN Miles. I agree with the amezquita components of his admission documentation. 81yo female with T2DM, HTN, hyperlipidemia, admission in December for UTI/hyponatremia/?lyme disease - presenting with frontal headache that awoke her from sleep last pm. Associated with emesis. Does not have h/o headaches or migraines. Headache improved throughout the day today. Also had right hand/arm weakness on Sunday - now resolved - and right leg weakness - also resolved. PMH/PSH/allergies/meds/sochx/famhx - reviewed VSS, afebrile; BPs had been high - now improving gen - NAD, comfortable eyes - PERRLA; EOMI; no photophobia neck - no JVD heart - RRR, s1 s2 lungs - CTA b/l abd - soft NT ND BS+ ext - no edema, pulses 2+ b/l neuro - strength 5/5 x 4 exts; handgrips 5/5 b/l; no facial droop; sensation intact x 4 extremities labs reviewed imaging reviewed including MRI brain lyme testing noted A/P: 1. acute headache - resolved. etiology? 2nd to uncontrolled HTN? (SBP nearly 200 upon ER presentation) 2nd to suspected meningioma? other? 2. uncontrolled HTN - improving. Uncertain if headache drove her BP up, or vice versa. Is on tiny dose of losartan - suspect will need 50mg/day. 3. suspected meningioma - uncertain if contributing to headache, but low suspicion of such. Uncertain if contributing to right arm/leg transient weakness - suspicion also low. May be incidental finding. Will ask [facility] neurology to consult and weigh in on such. 4. transient right arm and right leg weakness - resolved. TIA? related to #3? peripheral issue (cervical spine disease, etc)? MRI brain neg for CVA consider MRI cervical spine consult neurology lyme testing is +, but was also positive in December, and Western Blot was negative for acute lyme at that time reasonable to resend Western blot and treat empirically given her neuro symptoms Josh Thakkar MD PG Care Time/CCT Total # of Minutes Spent Total Time Spent with Patient: Total time spent is greater than 50% in coordination of care (as documented) at patient's floor/unit and/or counseling patient: Coding Level of Care Code 43057 Initial Inpt Care Lvl 3 Diagnoses Stroke-like symptoms R29.90 Meningioma D32.9 Headache R51.[address] R93.0 Diabetes mellitus type II, controlled E11.9 HTN (hypertension) I10 Hyperlipidemia E78.5 Osteoporosis M81.0 Hypomagnesemia E83.42
[2022-03-05] MEDS ORDERED: GADOBUTROL 30ML VIAL IV ONE (16:15)
[2022-03-05] MEDS: MAGNESIUM SULFATE / D5W 1 GM/100 ML BAG IV SCH ×3 (16:56→20:23)
--- NOTE | 2022-03-05 17:12 | Magnetic Resonance Report ---
MR brain wo/w con CLINICAL HISTORY: headache- possible menigioma. COMPARISON STUDY: CTA and CT of the brain without contrast from 03/05/2022 TECHNIQUE: Multiplanar multisequence images of the brain were performed before and after Gadavist, 7 .1 mL of IV contrast. Diffusion weighted imaging and ADC mapping was also performed. FINDINGS: Extra-axial space: There is no evidence for a subdural hematoma, There are no extra-axial fluid taylor ections. Ventricles and cisterns: The ventricles are normal in size and configuration. There is no evidence f or midline shift or mass effect. Parenchyma: On noncontrast images, there is no evidence for an acute hemorrhage or infarct. However, there is abnormal diffusion weighted imaging and ADC mapping within the high left parietal lobe poste riorly measuring 3.5 x 2.6 cm. This can be seen on the previous CT. It is sharply defined and the fin dings are suspicious for a meningioma. On postcontrast images, diffuse enhancement is demonstrated. There is mild cerebral cortical atrophy. There is normal beasley-white differentiation. The remaining harris lci and gyri appear normal without effacement. The midline structures are unremarkable. The posterior fossa structures appear normal. On postcontrast images, there is no other evidence for enhancing mass lesion. Osseous structures: The paranasal sinuses are well aerated. The mastoid air cells are well aerated. Soft tissues: No focal soft tissue abnormalities are identified. IMPRESSION: 1. Sharply defined, diffusely enhancing mass within the high left parietal lobe posteriorly adjacent to the meningeal surface most suspicious for a meningioma. 2. No other evidence for acute intracerebral pathology. 3. Follow-up MRI in 3-6 months is recommended to demonstrate stability. ACT 112: Positive. There are findings on this exam that require communication between the performing entity and the patient following Patient Test Result Information Act ([place] Act 112) guidelines. Electronically signed by: Semaj Gil M.D. 03/05/2022 5:10 PM
[2022-03-05 17:20] LABS: Appearance Urine Clear (Clear); Bilirubin Urine Negative (Negative); Blood Urine Negative (Negative); Color Urine Yellow; Glucose Urine UA Negative (Negative); Ketones Urine Negative (Negative); Leukocyte Esterase Urine Negative (Negative); Nitrite Urine Negative (Negative); Protein Urine Negative (Negative); Specific Gravity Urine > 1.045 (1.000-1.030); Urobilinogen Urine Negative (Negative)
[2022-03-05] MEDS ORDERED: GLUCAGON FOR INJ 1 MG VIAL SQ PRN (20:23)
[2022-03-05] MEDS ORDERED: GLUCOSE 40% GEL 15 GM TUBE PO PRN (20:23)
[2022-03-05] MEDS ORDERED: CARBOHYDRATES FOR HYPOGLYCEMIA PO PRN (20:23)
[2022-03-05] MEDS ORDERED: DEXTROSE 50% 50 ML SYRINGE IV PRN (20:23)
[2022-03-05] MEDS ORDERED: GLUCOSE 10 TAB/TUBE PO PRN (20:23)
[2022-03-05] MEDS ORDERED: ACETAMINOPHEN 325 MG TAB PO PRN (20:23)
[2022-03-05] MEDS: INSULIN ASPART PER UNIT SC SCH (20:41)
[2022-03-05] MEDS: HEPARIN SOD 5,000 UNIT/0.5 ML VIAL SQ SCH (23:21)
[2022-03-06 07:22] LABS: Estimated Average Glucose 166 mg/dl; Hemoglobin A1C 7.4 % (4.5-5.6)
[2022-03-06 07:46] LABS: Chol HDL Ratio 3.3 (0-5)
[2022-03-06] MEDS: HEPARIN SOD 5,000 UNIT/0.5 ML VIAL SQ SCH ×2 (08:48→13:27)
[2022-03-06] MEDS ORDERED: OMEGA-3 (PURIFIED FISH OIL) 1 GM CAP PO SCH (09:00)
[2022-03-06] MEDS ORDERED: ASPIRIN 81 MG ECTAB PO SCH (09:00)
[2022-03-06] MEDS ORDERED: MULTIVITAMIN TAB PO SCH (09:00)
[2022-03-06] MEDS ORDERED: SERTRALINE HCL 50 MG TABLET PO SCH (09:00)
[2022-03-06] MEDS ORDERED: LOSARTAN POTASSIUM 25 MG TAB PO SCH (09:00)
--- NOTE | 2022-03-06 09:04 | XCELERA ---
[id number]
[2022-03-06] MEDS: INSULIN ASPART PER UNIT SC SCH ×2 (10:47→12:22)
--- NOTE | 2022-03-06 11:02 | Neurology Consultation ---
Date of Consultation March 06, 2022 Assessment & Plan (1) Headache: (2) Numbness and tingling of right arm and leg: (3) Muscle right arm weakness: (4) Meningioma: (5) HTN (hypertension): Plan patient had the new onset of headache March 05 which has since resolved. In addition she had the onset of numbness and tingling in the right leg and right arm March 03 which resolved after 24 hours. She had some right upper extremity weakness which was very mild and perhaps lasted from March 03 to March 05. Currently, patient is asymptomatic without pain, weakness, or numbness, and she has no focal neurologic findings, meningeal signs, or encephalopathy. [facility] [employer] imaging reveals a medium-sized meningioma over the left falx. there is no edema despite the compression underneath the meningioma, which points to this being very slow growing. I do not believe this has anything to do with her symptoms. The patient had significant hypertension. This may have led to vaso spasm and transient neurologic symptoms. The patient has not had a stroke. I am not certain I would call this a TIA either. she has a history of cigarette smoking but quit age 59. her hemoglobin A1c is mildly elevated at 7.4. The patient had an equivocal Lyme test about 6 weeks ago. a Western blot has been obtained. Recommendations: 1. control blood pressure as you are doing, aiming for a mean arterial pressure of 95-100. 2. Control glucose, aiming to lower the hemoglobin A1c to less than 7. 3. awaiting Lyme Western blot 4. agree with 81 mg aspirin tablet daily. She has mild old small vessel ischemic changes on MRI. 5. The patient is not high dose statin candidate. 6. She would likely benefit from seeing a neurosurgeon as an outpatient given opinion regarding this meningioma. 7. I see no need for additional neurologic testing or treatment at this time. Please contact me if I can be of further assistance. Overall, I spent a total of 70 minutes with this case including review of records, review of CT and MRI films, direct evaluation the patient at bedside, a nd discussion of the case with the patient and RN at bedside, and Dr. Ross, including differential diagnosis and treatment options. History of Present Illness Reason for Consultation: patient is an 81-year-old, who I was asked to see at the request of José LOCK, for neurologic consultation regarding headaches and right-sided dysesthesias. Requesting Physician: ASHVIN Barr Attending Physician: Ashly Ross MD History of Present Illness this patient has a 20 year history of hypertension and dyslipidemia. She has had type 2 diabetes for at least a year. She does not have any history of heart disease, stroke, or headaches. Towards the end of December she was hospitalized and ended up having a urinary tract infection. She was treated with amoxicillin for 2 weeks. At that time a Lyme antibody titer was positive but the Western blot was negative in that only had 1 IgM band and 2 IgG bands. She did not receive antibiotics for Lyme disease. Patient spent most of the afternoon March 03 shucking corn. Around 0, when she was resting, she had the onset of right foot numbness up to the knee. This persisted after about 15 minutes she noted the right hand becoming numb and this went up the forearm. Over time it went all the way up the arm to the right face. Each area of numbness only lasted 20-30 minutes and then was gone. In addition, the right upper extremity was weak. She did not believe the right lower extremity was weak and there was no facial droop. She had no speech issues or confusion. Her balance was normal. She went to bed without numbness symptoms and woke up the next day feeling fine. She went all day on the without symptoms. in retrospect, she may have had a little bit of weakness of t he right upper extremity throughout the and . When she woke up on March 05 at 7:30 a.m., she had a bifrontal headache. It was steady and sharp. There was no numbness or dysesthesias and no new weakness. She arrived to the emergency room March 05 at 10:55 a.m., with a temperature 36.6, pulse 92 and regular, respiratory rate 16, blood pressure 198/98, and O2 saturation 94%. There was possible numbness in the right face and weakness in the right arm. The patient believes that all of these symptoms totally resolved as the day went on. CBC was unremarkable. Chem profile was remarkable for magnesium 1.6 and a glucose of 172. Lyme antibody titers were positive and Western blot is pending. Chest x-ray was unremarkable. CT scan of the head showed no acute changes but there was a meningioma present at the falx. CT angiography of the head revealed some narrowing of the right A1 segment CT angiography of the neck was unremarkable. MRI of the brain showed a 2 x 3.5 x 2.5 meningioma in the left falx. There was no significant mass effect (compression without edema) noted. There was some mild generalized atrophy and old small vessel ischemic changes but no acute /subacute stroke. Blood pressure this morning is 176/81. She has no complaints of headache, weakness, numbness, or other issues. Echocardiogram showed some mild LVH mild tricuspid regurg but was otherwise unremarkable. Triglycerides were 179, total cholesterol 148, and LDL 68. Allergies Allergy/AdvReac Type Severity Reaction Status Date / Time No Known Allergies Allergy Unverified 01/20/22 11:50 Home Medications Medication Instructions Recorded Confirmed Type cholecalciferol (vitamin D3) 25 1,000 units PO DAILY 05/23/19 03/05/22 History mcg (1,000 unit) capsule multivitamin 1 tab PO DAILY 05/23/19 03/05/22 History omega-3 acid ethyl esters 1 gram 1 cap PO DAILY 05/23/19 03/05/22 History capsule travoprost 0.004 % eye drops 1 drops ophthalmic (eye) QPM 05/23/19 03/05/22 History losartan 25 mg tablet 25 mg PO DAILY #90 tabs 09/23/21 03/05/22 Rx sertraline 50 mg tablet 50 mg PO DAILY #90 tabs 09/23/21 03/05/22 Rx alendronate 70 mg tablet 70 mg PO WEEKLY #12 tabs 12/12/21 03/05/22 Rx glimepiride 2 mg tablet 2 mg PO QAM #90 tabs 01/02/22 03/05/22 Rx amoxicillin 500 mg capsule 500 mg PO TID #37 caps 01/16/22 03/05/22 Rx Patient History Medical History Diabetes mellitus type II, controlled HTN (hypertension) Hyperlipidemia Osteoporosis Surgical History Hx of shoulder surgery Family History Sister Colorectal cancer Mother , age 67 of congestive heart failure Diabetes Heart disease Hypertension Father , age 73 of a stroke Stroke Denies family history of Ovarian cancer Prostate cancer Myocardial infarction Breast cancer Social History (Updated 03/06/22 @ 10:50 by Lizandro Jonas MD) Smoking Status: Never smoker Second Hand Exposure: Yes; Hx Alcohol Use: No Hx Substance Use: No Preferred Language: Mongolian Communication Ability: Effective Mechanical Car Checker Required: No Beliefs That Will Affect Care: None marital status: Current Living Situation: Spouse current occupational status: retired 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 How many Children do You have: 3 Feels Safe at Home: Yes Childhood Exposure to Second-Hand Smoke: No caffeine: Yes Dental Care, Regularly: No Physical Activity Frequency: Daily Seatbelt Use: always Sunscreen Use: Yes (sometimes) Assistive Devices: None Review of Systems Constitutional: no fever, no fatigue and no weakness Eyes: no diplopia, no eye pain and no worsening vision Ear, Nose, Mouth, Throat: no ear pain, no tinnitus, no hearing loss, no dizziness, no snoring, no hoarseness and no dysphagia Respiratory: no cough and no dyspnea Cardiovascular: no chest pain, no palpitations and no lightheadedness Gastrointestinal: no abdominal pain, no nausea and no vomiting Genitourinary: no dysuria, no urinary frequency and no urinary incontinence Musculoskeletal: no back pain, no neck pain, no radicular pain, no joint pain and no myalgia Integumentary: no rash and no lesions Neurologic: no gait abnormality, no localized weakness, no generalized weakness, no tingling, no numbness, no tremor(s), no abnormal movements, no headache(s), no abnormal speech, no confusion and no memory loss Psychiatric: no depression, no irritability, no anxiety, no difficulty concentrating, no confusion and no hallucinations Endocrine: no fatigue and no flushing Hematologic / Lymphatic: no easy bleeding and no easy bruising Allergy / Immunological: no urticaria and no problem reported Exam (Neuro) Physical Exam: The patient is right-handed. The patient is awake, alert, and attentive. Speech is normal without any aphasia or dysarthria. The patient can name objects, repeat phrases, and has normal spontaneous speech. Mentation and thought processes are intact, with orientation to person, place and time, and normal fund of knowledge. Attention and concentration are normal. Mood and affect are normal and appropriate. General appearance and grooming are normal. Short and long-term memory are intact. The discs are sharp with positive venous pulsations bilaterally. There are no exudates, hemorrhages, or blood vessel changes seen. Pupils are 3 mm bilaterally and reactive to light. Extraocular eye muscles are intact without nystagmus. Visual acuity and visual najera seem normal grossly to confrontation. There are no deficits to sensation in the face in all 3 distributions of the fifth cranial nerve bilaterally. Corneal reflexes are positive bilaterally. Facial strength and symmetry was normal bilaterally. Hearing seems normal bilaterally. Palate moves well without asymmetry. There is normal sternocleidomastoid and trapezius (shoulder shrug) strength bilaterally. Tongue is midline with good strength bilaterally. Neck has a full range of motion without discomfort. There are no cervical bruits bilaterally. There are no cranial or ocular bruits. Heart is without murmur. There is a regular rhythm and rate. Cervical, thoracic, and lumbar spine are nontender to palpation. Gait was not tested but stance sitting up in bed is normal. With outstretched arms there is no drift. There are no resting, postural, or action tremors. There is no ataxia with finger to nose testing. There is good facility in the hands. No other abnormal involuntary movements are noted. Motor strength is 5/5 diffusely in the arms bilaterally including deltoids, biceps, triceps, brachioradialis, wrist flexors and extensors, spindle setter, and intrinsic hand muscles. Motor strength is 5/5 diffusely in the legs bilaterally including hip flexors, quadriceps, hamstrings, gastrocnemius, tibialis anterior, tibialis posterior, and Peroneii muscles. Toe extensors are normal and there is good bulk in the extensor digitorum brevis muscles bilaterally. The limbs have good tone without rigidity or spasticity. There is no atrophy noted in the muscles. Muscle bulk is normal, there is no tenderness to palpation, no myotonia to percussion, and no fasciculations seen. Sensory examination is intact to touch and pin throughout all 4 limbs diffusely. Reflexes are 2/4 in the biceps, triceps, brachioradialis, quadriceps, and Achilles tendons bilaterally. There is no clonus bilaterally. Toes are downgoing with plantar stimulation bilaterally. Peripheral pulses are present and of normal quality distally in all 4 limbs. There is no peripheral edema noted in the limbs. Results & Data ([facility]) Vital Signs (Past 12 Hours) Vital Signs Temp Pulse Pulse Resp BP BP Pulse Ox 03/06/22 09:49 176/81 H 03/06/22 09:49 79 20 03/06/22 08:56 79 18 03/06/22 08:56 176/97 H 03/06/22 08:30 71 16 03/06/22 08:00 80 17 03/06/22 07:30 71 21 03/06/22 07:00 68 15 03/06/22 03:45 81 18 183/94 H 95 03/06/22 00:30 36.9 C 76 17 151/96 H 93 O2 Del Method 03/06/22 09:49 03/06/22 09:49 03/06/22 08:56 03/06/22 08:56 03/06/22 08:30 03/06/22 08:00 03/06/22 07:30 03/06/22 07:00 03/06/22 03:45 Room Air 03/06/22 00:30 Room Air PG Care Time/CCT Total # of Minutes Spent Total Time Spent with Patient: Total time spent is greater than 50% in coordination of care (as documented) at patient's floor/unit and/or counseling patient: Coding Level of Care Code 60256 Initial Inpt Care Lvl 3 Diagnoses Headache R51.9 Numbness and tingling of right arm and leg R20.0; R20.2 Muscle right arm weakness M62.81 Meningioma D32.9 HTN (hypertension) I10 Time Spent (min) 70
[2022-03-06] MEDS ORDERED: LOSARTAN POTASSIUM 25 MG TAB PO ONE (12:30)
--- NOTE | 2022-03-06 16:17 | Discharge Summary ---
Date of Service March 06, 2022 Admission HPI Per Admitting Provider 81 YOF with medical history of: Hyponatremia, HTN, HLD, DMII, Osteopetrosis. Patient came to the [facility] today for headache. The headache woke her up this morning. It was sharp and throbbing that started left frontal and then progressed to bifrontal across front of head. This was associated with some vomiting this morning following glass of water. She then took ibuprofen and went back to sleep. Her also gave her 2 baby aspirin last night before bed for her right arm and leg tingling. As this did not improve she came here. Patient also states that on Saturday 03/03 the patient was husking corn and boiling it for ~ 3 hours, and that night she had onset of right foot weakness that progressed up her right leg and then to her right arm. She reports that this has resolved but occasionally will still get some right arm tingling that also sometimes wakes her up at night. She states that her headache is resolving and is much better than before. In the [facility] the patient had routine labs performed to include lyme, and had a CT scan of head, and CTA of the head and neck performed. CTA of the head and neck notable for possible meningioma. Will obtain MRI w/wo to rule out CVA as well as better evaluate suspected meningioma. For her blood pressure she has been checking it at home and has been in the 120-150 range. She had her HCTZ discontinued last admission secondary to hyponatremia. Will follow in house. Patient will be admitted to medical telemetry to continue to rule out above process. COVID test on admission is: Pending Lyme was re-tested in [facility]- previously checked in December admission- with only 2 bands. Principal Diagnosis Uncontrolled hypertension Discharge Data Allergies Allergy/AdvReac Type Severity Reaction Status Date / Time No Known Allergies Allergy Unverified 01/20/22 11:50 Consultations 03/05/22 20:48 Consult Neurology Routine Ordered Studies 03/05/22 11:17 CT angio head w con Stat CT angio neck with con Stat CT head/brain wo con Stat 03/05/22 14:02 MRI Brain [MR brain wo/w con] Routine Hospital Course (1) HTN (hypertension): Neurology thinks symptoms related; after last discharge was off all antihypertensives; resume losartan at 50 mg (prior was on thiazide and losartan 25 mg but former stopped on account of hyponatremia, latter on account of good blood pressure readings); she feels well and wants to go home (2) Stroke-like symptoms: TIA versus secondary to hypertension; neurology input noted and respected; continue aspirin (3) Meningioma: Found on incidental imaging and evaluated with MRI - asymptomatic -Outpatient neurosurgery; follow-up MRI in 3 to 6 months (4) Headache: Resolved (5) Diabetes mellitus type II, controlled: A1c 7.4; outpatient follow-up, long-term should be less than 7 (6) Hyperlipidemia: LDL less than 70, no (7) Osteoporosis: Continue Alendronate and Cholecalciferol (8) Hypomagnesemia: Would follow-up as outpatient (9) Lyme disease: Not confirmed; Western blot pending Total Time Total Time Spent Total Time Spent (In Minutes): 32 Discharge Plan Discharge Items Patient Disposition: Home - Self-Care Reason For Visit: HEADACHE,R/O CVA - LIKELY MENINGIOMA Discharge Diagnosis: Uncontrolled hypertension Activity: Resume your previous activity Non-emergency contact: Primary Care Provider Call non-emergency contact if: your symptoms worsen Follow-up/Referrals: Tereza Dejesus MD [Primary Care Provider] - Jarad John MD [Outside Practitioners] - (Likely meningioma left parietal) Diet: Carb Consistent or DM2 and Heart Healthy Addtl Attending Provider Instructions: We have initiated a blood pressure medicine losartan 50 mg (you may be taking a lower dose before; if you have an old prescription and medications left over from same, talk to the pharmacist to see how you might use those up but do not double up old plus new); Please see a neurosurgeon for what appears to be a benign tumor in the brain; I am putting in a name but please work with your primary physician to obtain a referral, if necessary; Please talk to your primary doctor about needing a follow-up MRI of the brain in 3 to 6 months; Start taking 81 mg aspirin every day, it is included in your discharge medication list Pending Studies at Discharge: Yes Studies:: Lyme Western Blot Stand-Alone Forms: [employer], Smoking Cessation Medications and DC Order Prescriptions: New losartan 50 mg Tablet 50 mg PO DAILY Qty: 30 0RF Rx Instructions: New dose of this medication aspirin 81 mg Tablet,Delayed Release (Dr/Ec) 81 mg PO QAM Qty: 90 0RF Continued sertraline 50 mg tablet 50 mg PO DAILY Qty: 90 1RF alendronate 70 mg tablet 70 mg PO WEEKLY Qty: 12 1RF Rx Instructions: Takes on Wednesdays glimepiride 2 mg tablet 2 mg PO QAM Qty: 90 1RF Rx Instructions: administer with breakfast omega-3 acid ethyl esters 1 gram capsule 1 cap PO DAILY cholecalciferol (vitamin D3) 1,000 unit capsule 1,000 units PO DAILY multivitamin tablet 1 tab PO DAILY travoprost 0.004 % drops 1 drops OP QPM Discontinued losartan 25 mg tablet 25 mg PO DAILY Qty: 90 1RF amoxicillin 500 mg capsule 500 mg PO TID Qty: 37 0RF Discharge Orders: Discharge Order (Routine); Ordered 03/06/22 Ordered By: Ashly Domínguez/Other Patient Handouts: Managing Type 2 Diabetes Admission Data Admit Date/Time: 03/05/22 14:26 Attending Provider: Ashly Ross Admit Provider: Josh Thakkar Primary Care Provider: Tereza Dejesus Other Providers: Lizandro Jonas ; Josh Thakkar Coding Level of Care Code D/C DAY MANAGEMENT >30 MINS Diagnoses HTN (hypertension) I10 Stroke-like symptoms R29.90 Meningioma D32.9 Headache R51.9 Diabetes mellitus type II, controlled E11.9 Hyperlipidemia E78.5 Osteoporosis M81.0 Hypomagnesemia E83.42 Lyme disease A69.20
[2022-03-07] MEDS ORDERED: LOSARTAN POTASSIUM 50 MG TAB PO SCH (09:00)
[2022-03-08 02:33] LABS: 18KDIGG Band REACTIVE; 23KDIGG Band REACTIVE; 23KDIGM Band REACTIVE; 28KDIGG Band NON-REACTIVE; 30KDIGG Band NON-REACTIVE; 39KDIGG Band REACTIVE; 39KDIGM Band NON-REACTIVE; 41KDIGG Band REACTIVE; 41KDIGM Band NON-REACTIVE; 45KDIGG Band NON-REACTIVE; 58KDIGG Band REACTIVE; 66KDIGG Band NON-REACTIVE; 93KDIGG Band REACTIVE; Lyme Antibodies, WB IgG POSITIVE (NEGATIVE); Lyme Antibodies, WB IgM NEGATIVE (NEGATIVE)
[2022-03-08] MEDS ORDERED: ALENDRONATE SODIUM 70 MG TAB PO SCH (06:30)
== END 2022-03-06 17:00 | disposition home or self-care (01) ==
LOC: ED 10:50 → INTOOBSV 14:26 → SUATTDRO 14:26 → EDINP 14:26 → 2N 20:24

== ENCOUNTER 2024-01-05 07:46 | Inpatient (IN) ==
--- NOTE | 2024-01-05 08:03 | Emergency Department Note ---
Impression & Plan Compression fx, lumbar spine, Meningioma, Syncope ED Provider Note NAME: TODD CARMICHAEL AGE: 83 SEX: F : 1940 ARRIVES VIA: Ambulance INFORMANT: Patient, EMS ED PROVIDER(S): Bennie Aguilera DO CHIEF COMPLAINT: Back pain HPI: The patient is an 83-year-old female who presented to the emergency department for back pain. The patient describes low back pain after a fall yesterday. The patient fell yesterday but was able to stand. She continued to have pain throughout the evening. The patient had a syncopal episode today while she was trying have a bowel movement because of the pain. The patient denies having any abdominal pain at this time. She denies having any chest pain or difficulty breathing. She does complain of lower extremity numbness which is not new for her. The patient denies having any recent fevers or colds. ROS: See above HPI for pertinent positives & negatives. A total of 10 systems reviewed and were otherwise negative. PAST MEDICAL HISTORY: See Below PAST SURGICAL HISTORY: See Below FAMILY HISTORY: See Below SOCIAL HISTORY: See Below HOME MEDICATIONS: See Below ALLERGIES: See Below VITALS: See Below PHYSICAL EXAMINATION: GENERAL: The patient is awake and alert. The patient is anxious and appears to be uncomfortable. EYES: The conjunctivae are clear. The pupils are round and reactive. EARS, NOSE, MOUTH AND THROAT: The nose is without any evidence of any deformity. NECK: The neck is nontender and supple. RESPIRATORY: Normal respiratory effort is noted there is no evidence of wheezing rhonchi or rales CARDIOVASCULAR: Regular rate and rhythm noted there no murmurs rubs or gallops normal S1 normal S2. GASTROINTESTINAL: The abdomen is soft. Abdomen is nontender. BACK: There is significant tenderness in the lumbar spine. No specific step-off was noted. Range of motion elicits pain. MUSCULOSKELETAL/EXTREMITIES: There is no evidence of gross deformity full range of motion is noted in the hips and shoulders. SKIN: There is no obvious evidence of any rash. There are no petechiae, pallor or cyanosis noted. NEUROLOGIC: Patient is awake alert and oriented x3. Strength was symmetric. Speech was clear. The patient is able to hold each leg off the bed for greater than 5 seconds. MEDICAL DECISION MAKING: The patient is an 83-year-old female who presented to the emergency department for back pain. The patient had back pain after a fall yesterday. She did present by ambulance because she had a syncopal episode today. I discussed the patient's laboratory and radiographic studies with her. She was treated with pain medication in the emergency department. She was reevaluated multiple times. She was found to have a lumbar compression fracture which I do feel explains her back pain. She was also found to have an incidental note of a meningioma. She knows about the meningioma. Her family doctor has offered follow-up with neurosurgery however at this time the patient would not like to have neurosurgery and would rather follow this. Now that she has some degree of cerebral edema when I discussed her condition with the on-call hospitalist group and recommended that I call neurosurgery. The patient was significantly improved on reevaluation. Triage Nursing notes reviewed. Prior medical records reviewed Vital Signs: reviewed and remarkable for no significant abnormalities Differential diagnosis: Vasovagal event, dehydration, infection, hypoglycemia, electrolyte abnormalities, cardiac sources, intracerebral event, pulmonary embolism, seizure, toxicologic, neurologic, as well as other pathologies. ER treatment provided: See below Diagnostics interpreted by me: ECG: EKG was obtained in the emergency department. My interpretation is normal sinus rhythm at 75 bpm. There is no ectopy. There is no acute ST segment abnormalities noted. This was compared to a tracing from March 05, 2022. No changes were noted. Cardiac Monitoring: An order was placed for continuous cardiac monitoring. The monitor shows a rate of 74 bpm with sinus rhythm. Laboratory studies: As stated above and show below. Imaging studies: See below. Radiographic imaging was reviewed by myself Consultation(s): I discussed this case with Dr. Morales who is on-call for the [facility] hospitalist group. I discussed this case with Dr. oPp Who is on-call for neurosurgery at [facility]. He recommends the patient to schedule a follow-up appointment as an outpatient once she has been discharged from her facility. [phone] Past Med/Surg History Problem List (Updated 01/05/24 @ 11:09 by Bennie Aguilera DO) Syncope (Acute) Meningioma (Acute) Compression fx, lumbar spine (Acute) Excessive cerumen in both ear canals Hypomagnesemia Meningioma Lyme disease (Acute) Intracranial mass (Acute) Diabetes mellitus type II, controlled Toenail deformity Encounter for examination following treatment at hospital Diabetes Elevated LFTs Hyponatremia (Acute) UTI (urinary tract infection) HTN (hypertension) (Chronic) Hyperlipidemia (Chronic) Osteoporosis (Chronic) Impacted cerumen of right ear (Chronic) Abnormal fasting glucose (Chronic) Routine health maintenance (Chronic) Medical History Muscle right arm weakness Numbness and tingling of right arm and leg Stroke-like symptoms Headache Surgical History Hx of shoulder surgery Family History Sister Colorectal cancer Mother , age 67 of congestive heart failure Diabetes Heart disease Hypertension Father , age 73 of a stroke Stroke Denies family history of Ovarian cancer Prostate cancer Myocardial infarction Breast cancer Social History Smoking Status: Never smoker Second Hand Exposure: Yes; Do You Dip or Chew Tobacco: No; Hx Alcohol Use: No Hx Substance Use: No Preferred Language: [place]ib[place]ian Communication Ability: Effective Visual Impairment: Limited Hearing Ability: Normal Master Fisher Required: No Beliefs That Will Affect Care: None marital status: Current Living Situation: Spouse current occupational status: retired 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 How many Children do You have: 3 Feels Safe at Home: Yes Childhood Exposure to Second-Hand Smoke: No Diet: regular caffeine: Yes during the past year weight has: remained stable Dental Care, Regularly: No Physical Activity Frequency: Daily Seatbelt Use: always Sunscreen Use: Yes (sometimes) Assistive Devices: Denture - Upper and Glasses Allergies Allergies Allergy/AdvReac Type Severity Reaction Status Date / Time No Known Allergies Allergy Verified 01/05/24 10:29 Home Meds Home Medications Medication Instructions Recorded Confirmed cholecalciferol (vitamin D3) 25 1,000 units PO DAILY 05/23/19 01/05/24 mcg (1,000 unit) capsule multivitamin 1 tab PO DAILY 05/23/19 01/05/24 omega-3 acid ethyl esters 1 gram 1 cap PO DAILY 05/23/19 01/05/24 capsule travoprost 0.004 % eye drops 1 drops ophthalmic (eye) QPM 05/23/19 01/05/24 Previous Rx's Medication Instructions Recorded aspirin 81 mg tablet,delayed 81 mg PO QAM #90 tabs 03/06/22 release losartan 50 mg tablet 50 mg PO DAILY #90 tabs 01/16/23 sertraline 50 mg tablet 50 mg PO DAILY #90 tabs 01/16/23 alendronate 70 mg tablet 70 mg PO WEEKLY #12 tabs 10/18/23 glimepiride 4 mg tablet 4 mg PO QAM #90 tabs 10/18/23 atorvastatin 10 mg tablet 10 mg PO DAILY #90 tabs 12/04/23 empagliflozin 10 mg tablet 10 mg PO DAILY #90 tabs 12/25/23 (Jardiance) Results & Data (ED) Vital Signs Vital Signs - 24 hr 01/05/24 07:52 01/05/24 08:34 01/05/24 08:56 Temperature 36.6 C Temperature Source Oral Pulse Rate 75 73 72 Pulse Rate [Apical] Respiratory Rate 18 18 Respiratory Effort / Characteristics Non-Labored Spontaneous Respiratory Depth Normal Respiratory Pattern Regular Blood Pressure 196/85 H Blood Pressure [Right Arm] Blood Pressure Mean 122 Blood Pressure Mean [Right Arm] Blood Pressure Position Sitting Blood Pressure Position [Right Arm] Pulse Oximetry 95 90 Oxygen Delivery Method Room Air Room Air Oxygen Flow Rate Sepsis Recent Fever Within 48 Hours No Sepsis New/Unexplained Change in Mental Status No Sepsis Action Taken by Nursing No Action Required Oxygen Flow Rate - Titration Pulse Oximetry Post Tiitration 01/05/24 09:20 01/05/24 10:09 01/05/24 10:20 Temperature Temperature Source Pulse Rate Pulse Rate [Apical] Respiratory Rate 18 19 Respiratory Effort / Characteristics Non-Labored Spontaneous Non-Labored Respiratory Depth Normal Normal Respiratory Pattern Regular Blood Pressure Blood Pressure [Right Arm] 158/75 H 124/80 Blood Pressure Mean Blood Pressure Mean [Right Arm] 102 94 Blood Pressure Position Blood Pressure Position [Right Arm] Semi-fowlers Semi-fowlers Pulse Oximetry 91 86 L 95 Oxygen Delivery Method Room Air Room Air Nasal Cannula Nasal Cannula Oxygen Flow Rate 0 2 Sepsis Recent Fever Within 48 Hours Sepsis New/Unexplained Change in Mental Status Sepsis Action Taken by Nursing Oxygen Flow Rate - Titration 2 Pulse Oximetry Post Tiitration 95 01/05/24 10:40 Temperature Temperature Source Pulse Rate Pulse Rate [Apical] 74 Respiratory Rate 23 Respiratory Effort / Characteristics Spontaneous Respiratory Depth Normal Respiratory Pattern Regular Blood Pressure Blood Pressure [Right Arm] 123/60 Blood Pressure Mean Blood Pressure Mean [Right Arm] 81 Blood Pressure Position Blood Pressure Position [Right Arm] Pulse Oximetry 94 Oxygen Delivery Method Room Air Oxygen Flow Rate Sepsis Recent Fever Within 48 Hours Sepsis New/Unexplained Change in Mental Status Sepsis Action Taken by Nursing Oxygen Flow Rate - Titration Pulse Oximetry Post Tiitration Home Medications Current Medication List: was personally reviewed by me Laboratory Data Attestation: I reviewed the patient's lab results. 01/05/24 07:20 01/05/24 07:20 Lab Results 01/05/24 01/05/24 01/05/24 Range/Units 07:20 08:23 10:41 WBC 9.27 (4.8-10.8) K/ul RBC 4.41 (4.20-5.40) M/uL Hgb 13.2 (12.0-16.0) g/dl Hct 39.4 (37.0-47.0) % MCV 89.3 (80.0-100.0) fL MCH 29.9 (25.0-34.0) pg MCHC 33.5 (32.0-36.0) g/dL RDW Std Deviation 42.2 (36.4-46.3) fL RDW Coeff of Cecilio 12.8 (11.5-14.5) % Plt Count 184 (130-400) K/uL MPV 10.1 (9.4-12.4) fL Immature Gran % (Auto) 0.5 % Neut % (Auto) 61.3 % Lymph % (Auto) 27.9 % Bremer % (Auto) 8.1 % Eos % (Auto) 1.8 % Baso % (Auto) 0.4 % Neut # (Auto) 5.67 (1.40-6.50) K/uL Lymph # (Auto) 2.59 (1.20-3.40) K/uL Bremer # (Auto) 0.75 H (0.11-0.59) K/uL Eos # (Auto) 0.17 (0.00-0.50) K/uL Baso # (Auto) 0.04 (0.00-0.20) K/uL Immature Gran # (Auto) 0.05 (0.01-0.20) K/uL PT 10.9 (9.0-12.0) Seconds INR 1.0 (0.9-1.1) APTT 22 (21-31) Seconds PTT Ratio 0.8 Sodium 137 (136-145) mmol/L Potassium 4.3 (3.5-5.1) mmol/L Chloride 103 (98-107) mmol/L Carbon Dioxide 27 (21-32) mmol/L Anion Gap 7 (3-11) BUN 21 (6-23) mg/dl Creatinine 1.24 H (0.6-1.2) mg/dl Est Cr Clr Drug Dosing 33.2 ml/min Est GFR ( Amer) 46.2 ml/min Est GFR (Non-Af Amer) 39.9 ml/min BUN/Creatinine Ratio 16.9 (10-20) Glucose 146 H (70-99(Fasting)) mg/dl Calcium 9.8 (8.6-10.3) mg/dl Magnesium 2.0 (1.7-2.4) mg/dl Total Bilirubin 0.8 (0.2-1.0) mg/dl AST 21 (13-39) U/L ALT 20 (7-52) U/L Alkaline Phosphatase 56 (34-104) U/L Troponin I High Sens 6.1 (0-14) pg/ml Total Protein 7.2 (6.0-8.3) gm/dl Albumin 4.2 (3.4-5.0) gm/dl Globulin 3.0 (2.5-4.0) gm/dl Albumin/Globulin Ratio 1.4 (0.9-2) Lipase 55 (11-82) U/L Urine Color Yellow Urine Appearance Clear (Clear) Urine pH 8.0 H (4.5-7.5) Ur Specific [place] 1.016 (1.000-1.030) Urine Protein Negative (Negative) Urine Glucose (UA) 3+ H (Negative) Urine Ketones Negative (Negative) Urine Blood Negative (Negative) Urine Nitrite Negative (Negative) Urine Bilirubin Negative (Negative) Urine Urobilinogen Negative (Negative) Ur Leukocyte Esterase 1+ H (Negative) Urine WBC (Auto) 11-20 H (0-5) /hpf Urine RBC (Auto) 0-2 (0-2) /hpf U Hyaline Cast (Auto) 0-2 (0-2) /lpf U Epithel Cells (Auto) 0-2 (0-2) /hpf Urine Bacteria (Auto) None Seen (None Seen) Administered Medications Morphine Sulfate (Morphine Sulfate 4 Mg/Ml 1 Ml Carp\Vial) 4 mg IV Q15M PRN PRN Reason: Pain Stop: 01/19/24 07:59 Last Admin: 01/05/24 09:26 Dose: 4 mg Documented By: Admin: 01/05/24 08:29 Dose: 4 mg Documented By: ENOC Discontinued Medications Sodium Chloride (Nss) 500 mls @ 999 mls/hr IV .Q31M STA Stop: 01/05/24 08:30 Last Infusion: 01/05/24 09:32 Dose: Infused Documented By: Admin: 01/05/24 08:09 Dose: 999 mls/hr Documented By: ENOC Ondansetron HCl (Ondansetron Inj 2 Mg/Ml 2 Ml Vial) 4 mg IV NOW STA Stop: 01/05/24 08:01 Last Admin: 01/05/24 09:12 Dose: Not Given Documented By: ENOC Imaging Data Attestation: I personally reviewed and interpreted this imaging study as follows: My Impression: 1 view chest x-ray was obtained in the emergency department. My interpretation is no free air or definite infiltrate, final report below. X-ray of the pelvis was obtained in the emergency department. My interpretation is no definite fracture, final report below. Radiologist's Impression: Cervical Spine CT 01/05/24 08:00 CT cervical spine wo con CLINICAL HISTORY: 83 years-old Female with trauma. Acute neck trauma COMPARISON: CTA neck 03/05/2022 TECHNIQUE: Multiple axial CT images of the cervical spine were obtained without contrast. A dose lowering technique was utilized adhering to the principles of ALARA. FINDINGS: Multilevel degenerative changes including degenerative partial bony fusion at C5-C6 and severe disc space narrowing and moderate spondylitic spurring at C4-C5. Moderate to severe multilevel facet arthrosis. Partially calcified pannus posterior to the dens. Unchanged likely benign lucent focus of the C7 vertebral body. Developmental incomplete bony fusion involves the posterior arch of C1. The cervical soft tissues appear unremarkable. Left cervical rib incidentally noted. The visualized lung apices appear clear. IMPRESSION: No acute cervical spine fracture or subluxation. ACT 112: Negative or not required by law. The above report was generated using voice recognition software. It may contain grammatical, syntax or spelling errors. Electronically signed by: Marcelo Bill M.D. 01/05/2024 10:[address] 01/05/24 08:00 CT head/brain wo con CLINICAL HISTORY: 83 years-old Female with trauma. Acute head trauma TECHNIQUE: Multiple axial CT images of the head were obtained without contrast. A dose lowering technique was utilized adhering to the principles of ALARA. CT DOSE: 2025.62 mGy.cm COMPARISON: CT cervical spine of same day, brain MRI 03/05/2022 FINDINGS: No acute intracranial hemorrhage, midline shift, intra-axial mass, hydrocephalus, territorial ischemia or abnormal extra-axial collection. Involutional changes with chronic microvascular ischemic disease. Extra-axial mass adjacent to the superior left frontal lobe on image 25 series 2 measuring approximately 4.2 cm demonstrates mild mass effect and vasogenic edema upon the superior left frontal lobe which has progressed from prior. The lesion has increased in size previously measuring approximately 3.3 cm. The calvarium is intact. Developmental incomplete bony fusion involves the posterior arch of C1. The paranasal sinuses, mastoid air cells, and middle ear cavities are clear. IMPRESSION: 1. No acute intracranial abnormality or calvarial fracture. 2. Increased size of the meningioma adjacent to the superior left frontal lobe with mildly worsened mass effect on the adjacent left frontal lobe resulting in mild vasogenic edema. 3. No midline shift or hydrocephalus. ACT 112: Negative or not required by law. The above report was generated using voice recognition software. It may contain grammatical, syntax or spelling errors. Electronically signed by: Marcelo Bill M.D. 01/05/2024 10:[address] 01/05/24 08:00 CT lumbar spine wo con HISTORY: 83 years-old Female trauma acute low back pain status post fall COMPARISON: None TECHNIQUE: Multiple axial CT images of the lumbar spine were obtained without IV contrast. A dose lowering technique was used consistent with the principals of ALARA. FINDINGS: Demineralized appearance of the bones. Mild multilevel intervertebral disc space narrowing and spondylotic spurring with moderate facet arthrosis. Grade 1 anterolisthesis L4 on L5, likely secondary to the chronic facet disease. There is an acute L2 compression deformity with fracture lines involving the lateral, anterior, superior and inferior endplates. No retropulsion. There is only approximately 20% vertebral body height loss. Minimal paravertebral edema. Moderate central canal stenosis at L4-L5 with at least mild bilateral foraminal stenosis at this level. The imaged sacrum appears intact. Colonic diverticulosis. Distended urinary bladder. Atherosclerosis of the aorta. Complex and simple cysts of the left kidney. IMPRESSION: 1. Acute L2 compression deformity with 20% vertebral body height loss and no retropulsion. 2. Degenerative changes as above. ACT 112: Negative or not required by law. The above report was generated using voice recognition software. It may contain grammatical, syntax or spelling errors. Electronically signed by: Marcelo Bill M.D. 01/05/2024 10:04 AM Pelvis X-Ray 01/05/24 08:00 XR pelvis 1-2V routine HISTORY: 83 years-old Female trauma acute pelvic trauma COMPARISON: None TECHNIQUE: AP view of the pelvis FINDINGS: Moderate osteoarthritis of the hips. No acute fracture, dislocation or avascular necrosis. Unremarkable soft tissues. IMPRESSION: No acute fracture or dislocation identified. ACT 112: Negative or not required by law. The above report was generated using voice recognition software. It may contain grammatical, syntax or spelling errors. Electronically signed by: Marcelo Bill M.D. 01/05/2024 9:09 AM Chest X-Ray 01/05/24 08:01 XR chest 1V portable HISTORY: 83 years-old Female trauma acute chest trauma status post fall COMPARISON: 03/05/2022 TECHNIQUE: AP view the chest FINDINGS: Cardiac silhouette is enlarged. No pneumothorax or large pleural effusion. No overt pulmonary edema. Degenerative changes of the shoulders and spine. Mild subsegmental left basilar opacities similar to prior suggestive of atelectasis versus scarring. IMPRESSION: Cardiomegaly without acute process. ACT 112: Negative or not required by law. The above report was generated using voice recognition software. It may contain grammatical, syntax or spelling errors. Electronically signed by: Marcelo Bill M.D. 01/05/2024 9:17 AM Discharge Plan Visit Data Chief Complaint: Fall ED Provider: Bennie Aguilera Discharge Problem: Compression fx, lumbar spine, Meningioma, Syncope Patient Disposition: Being Evaluated by Hospitalist Forms Stand Alone Forms: My [facility] Prescriptions Prescriptions: No Action losartan 50 mg tablet 50 mg PO DAILY Qty: 90 3RF Rx Instructions: New dose of this medication sertraline 50 mg tablet 50 mg PO DAILY Qty: 90 1RF glimepiride 4 mg tablet 4 mg PO QAM Qty: 90 1RF Rx Instructions: administer with breakfast alendronate 70 mg tablet 70 mg PO WEEKLY Qty: 12 1RF Rx Instructions: Takes on Wednesdays atorvastatin 10 mg tablet 10 mg PO DAILY Qty: 90 2RF Jardiance 10 mg tablet 10 mg PO DAILY Qty: 90 1RF omega-3 acid ethyl esters 1 gram capsule 1 cap PO DAILY Rx Instructions: Unable to verify OTC meds at this date/time. cholecalciferol (vitamin D3) 1,000 unit capsule 1,000 units PO DAILY Rx Instructions: Unable to verify OTC meds at this date/time. multivitamin tablet 1 tab PO DAILY Rx Instructions: Unable to verify OTC meds at this date/time. travoprost 0.004 % drops 1 drops OP QPM aspirin 81 mg Tablet,Delayed Release (Dr/Ec) 81 mg PO QAM Qty: 90 0RF Rx Instructions: Unable to verify OTC meds at this date/time. Referrals Referrals: Tereza Dejesus MD [Primary Care Provider] - Discharge Problem: Compression fx, lumbar spine Qualifiers: Encounter type: initial encounter Lumbar vertebra fracture level: L2 Qualified Code(s): S32.020A - Wedge compression fracture of second lumbar vertebra, initial encounter for closed fracture Syncope Qualifiers: Syncope type: unspecified Qualified Code(s): R55 - Syncope and collapse
[2024-01-05] MEDS: SODIUM CHLORIDE 0.9% 500 ML IV STA (08:09)
[2024-01-05 08:23] LABS: Basophils # (auto) 0.04 K/uL (0.00-0.20); Basophils % (auto) 0.4 %; Eosinophils # (auto) 0.17 K/uL (0.00-0.50); Eosinophils % (auto) 1.8 %; Hematocrit (blood only) 39.4 % (37.0-47.0); Hemoglobin 13.2 g/dl (12.0-16.0); Immature Granulocytes # (auto) 0.05 K/uL (0.01-0.20); Immature Granulocytes % (auto) 0.5 %; Lymphocytes # (auto) 2.59 K/uL (1.20-3.40); Lymphocytes % (auto) 27.9 %; Mean Corpuscular Hemoglobin 29.9 pg (25.0-34.0); Mean Corpuscular Hgb Conc 33.5 g/dL (32.0-36.0); Mean Corpuscular Volume 89.3 fL (80.0-100.0); Mean Platelet Volume 10.1 fL (9.4-12.4); Monocytes # (auto) 0.75 K/uL (0.11-0.59); Monocytes % (auto) 8.1 %; Neutrophils # (auto) 5.67 K/uL (1.40-6.50); Neutrophils % (auto) 61.3 %; Platelet Count 184 K/uL (130-400); RDW Coefficient of Variation 12.8 % (11.5-14.5); RDW Standard Deviation 42.2 fL (36.4-46.3); Red Blood Count 4.41 M/uL (4.20-5.40); White Blood Count 9.27 K/ul (4.8-10.8)
[2024-01-05] MEDS: MoRPHine SULFATE 4 MG/ML 1 ML CARP\\VIAL IV PRN (08:29)
[2024-01-05 08:52] LABS: Albumin Globulin Ratio 1.4 (0.9-2); Albumin Level 4.2 gm/dl (3.4-5.0); BUN Creatinine Ratio 16.9 (10-20); Bilirubin,Total 0.8 mg/dl (0.2-1.0); Calcium 9.8 mg/dl (8.6-10.3); Creatinine Clr Calc Pharmacy 33.2 ml/min; Est GFR (African American) 46.2 ml/min; Est GFR (Non-African American) 39.9 ml/min; Potassium 4.3 mmol/L (3.5-5.1); Total Protein 7.2 gm/dl (6.0-8.3)
[2024-01-05 08:59] LABS: Troponin I High Sensitivity 6.1 pg/ml (0-14)
[2024-01-05 09:02] LABS: Partial Thromboplastin Ratio 0.8; Partial Thromboplastin Time 22 Seconds (21-31); Prothrombin Time 10.9 Seconds (9.0-12.0)
--- NOTE | 2024-01-05 09:11 | XRay Report ---
XR pelvis 1-2V routine HISTORY: 83 years-old Female trauma acute pelvic trauma COMPARISON: None TECHNIQUE: AP view of the pelvis FINDINGS: Moderate osteoarthritis of the hips. No acute fracture, dislocation or avascular necrosis. Unremarkab le soft tissues. IMPRESSION: No acute fracture or dislocation identified. ACT 112: Negative or not required by law. The above report was generated using voice recognition software. It may contain grammatical, syntax o r spelling errors. Electronically signed by: Marcelo Bill M.D. 01/05/2024 9:09 AM
[2024-01-05] MEDS: ONDANSETRON INJ 2 MG/ML 2 ML VIAL IV STA (09:12)
--- NOTE | 2024-01-05 09:18 | XRay Report ---
XR chest 1V portable HISTORY: 83 years-old Female trauma acute chest trauma status post fall COMPARISON: 03/05/2022 TECHNIQUE: AP view the chest FINDINGS: Cardiac silhouette is enlarged. No pneumothorax or large pleural effusion. No overt pulmonary edema. Degenerative changes of the shoulders and spine. Mild subsegmental left basilar opacities similar to prior suggestive of atelectasis versus scarring. IMPRESSION: Cardiomegaly without acute process. ACT 112: Negative or not required by law. The above report was generated using voice recognition software. It may contain grammatical, syntax o r spelling errors. Electronically signed by: Marcelo Bill M.D. 01/05/2024 9:17 AM
--- NOTE | 2024-01-05 10:06 | CT Scan Report ---
CT cervical spine wo con CLINICAL HISTORY: 83 years-old Female with trauma. Acute neck trauma COMPARISON: CTA neck 03/05/2022 TECHNIQUE: Multiple axial CT images of the cervical spine were obtained without contrast. A dose low ering technique was utilized adhering to the principles of ALARA. FINDINGS: Multilevel degenerative changes including degenerative partial bony fusion at C5-C6 and sev ere disc space narrowing and moderate spondylitic spurring at C4-C5. Moderate to severe multilevel fa cet arthrosis. Partially calcified pannus posterior to the dens. Unchanged likely benign lucent focus of the C7 vertebral body. Developmental incomplete bony fusion involves the posterior arch of C1. The cervical soft tissues appear unremarkable. Left cervical rib incidentally noted. The visualized l akil apices appear clear. IMPRESSION: No acute cervical spine fracture or subluxation. ACT 112: Negative or not required by law. The above report was generated using voice recognition software. It may contain grammatical, syntax o r spelling errors. Electronically signed by: Marcelo Bill M.D. 01/05/2024 10:04 AM
--- NOTE | 2024-01-05 10:06 | CT Scan Report ---
CT head/brain wo con CLINICAL HISTORY: 83 years-old Female with trauma. Acute head trauma TECHNIQUE: Multiple axial CT images of the head were obtained without contrast. A dose lowering tech nique was utilized adhering to the principles of ALARA. CT DOSE: 2025.62 mGy.cm COMPARISON: CT cervical spine of same day, brain MRI 03/05/2022 FINDINGS: No acute intracranial hemorrhage, midline shift, intra-axial mass, hydrocephalus, territorial ischemi a or abnormal extra-axial collection. Involutional changes with chronic microvascular ischemic diseas e. Extra-axial mass adjacent to the superior left frontal lobe on image 25 series 2 measuring approxi mately 4.2 cm demonstrates mild mass effect and vasogenic edema upon the superior left frontal lobe w hich has progressed from prior. The lesion has increased in size previously measuring approximately 3 .3 cm. The calvarium is intact. Developmental incomplete bony fusion involves the posterior arch of C1. The paranasal sinuses, mastoid air cells, and middle ear cavities are clear. IMPRESSION: 1. No acute intracranial abnormality or calvarial fracture. 2. Increased size of the meningioma adjacent to the superior left frontal lobe with mildly worsened m ass effect on the adjacent left frontal lobe resulting in mild vasogenic edema. 3. No midline shift or hydrocephalus. ACT 112: Negative or not required by law. The above report was generated using voice recognition software. It may contain grammatical, syntax o r spelling errors. Electronically signed by: Marcelo Bill M.D. 01/05/2024 10:04 AM
--- NOTE | 2024-01-05 10:06 | CT Scan Report ---
CT lumbar spine wo con HISTORY: 83 years-old Female trauma acute low back pain status post fall COMPARISON: None TECHNIQUE: Multiple axial CT images of the lumbar spine were obtained without IV contrast. A dose low ering technique was used consistent with the principals of ISADORA. FINDINGS: Demineralized appearance of the bones. Mild multilevel intervertebral disc space narrowing and spondy lotic spurring with moderate facet arthrosis. Grade 1 anterolisthesis L4 on L5, likely secondary to t he chronic facet disease. There is an acute L2 compression deformity with fracture lines involving th e lateral, anterior, superior and inferior endplates. No retropulsion. There is only approximately 20 % vertebral body height loss. Minimal paravertebral edema. Moderate central canal stenosis at L4-L5 w ith at least mild bilateral foraminal stenosis at this level. The imaged sacrum appears intact. Colonic diverticulosis. Distended urinary bladder. Atherosclerosis of the aorta. Complex and simple c ysts of the left kidney. IMPRESSION: 1. Acute L2 compression deformity with 20% vertebral body height loss and no retropulsion. 2. Degenerative changes as above. ACT 112: Negative or not required by law. The above report was generated using voice recognition software. It may contain grammatical, syntax o r spelling errors. Electronically signed by: Marcelo Bill M.D. 01/05/2024 10:04 AM
[2024-01-05 11:04] LABS: Appearance Urine Clear (Clear); Bacteria Urine Automated None Seen (None Seen); Bilirubin Urine Negative (Negative); Blood Urine Negative (Negative); Cast Urine Automated 0-2 /lpf (0-2); Color Urine Yellow; Epithelial Cell Urine Auto 0-2 /hpf (0-2); Glucose Urine UA 3+ (Negative); Ketones Urine Negative (Negative); Leukocyte Esterase Urine 1+ (Negative); Nitrite Urine Negative (Negative); Protein Urine Negative (Negative); RBC Urine Automated 0-2 /hpf (0-2); Specific Gravity Urine 1.016 (1.000-1.030); Urobilinogen Urine Negative (Negative)
--- NOTE | 2024-01-05 11:41 | History & Physical Report ---
Date of Service January 05, 2024 Assessment & Plan (1) Near syncope: Plan: Admit to med/telemetry Stable, nontoxic-appearing, and asymptomatic at the time of admission Presented to the ED this a.m. after experiencing what appears to be a vasovagal episode while going to the bathroom on the toilet Patient's family initially reported that she was slightly confused after this episode, however she is alert and oriented x 4, is responding appropriately to questions, and is without focal neurologic findings on exam. Has been able to ambulate to the restroom since arrival without recurrence of symptoms Continue to monitor on telemetry for now in case of arrhythmia, cardiac workup thus far has been unremarkable Fall/aspiration precautions, PT/OT consults SQ Lovenox for DVT prophylaxis Heart healthy/diabetes type 2 diet with 2 g sodium 1800 mL fluid restriction (2) Compression fx, lumbar spine: Plan: Patient noted to have an L2 compression fracture on lumbar spine CT today Approximately 20% vertebral body height loss without retropulsion Patient is without focal neuro defect since her fall Will start scheduled Tylenol and as needed morphine for pain Fall precautions ordered PT/OT consults placed (3) Meningioma: Plan: CT of the head/brain without contrast today shows an increase in size of the patient's meningioma with mildly worsened mass effect on the adjacent left frontal lobe resulting in mild vasogenic edema CT of the head/brain was negative for midline shift or hydrocephalus Patient is alert/oriented, and without focal motor defects on exam Emergency department discussed the case with [facility] neurosurgery at the request of the admission team [facility] felt this finding was unremarkable at this time, they did not think she needed to be started on any medical treatment such as steroids for the vasogenic edema, and recommended she follow-up outpatient with their services after discharge. (4) Diabetes mellitus type II, controlled: Plan: Will hold home Jardiance and glimepiride Monitor BSG ACHS, goal is [id number] Will start correction factor of 50, and carb ratio of 15 ACHS for now Adjust regimen as needed (5) HTN (hypertension): Plan: Currently stable Will continue home losartan Plan Patient was discussed with Dr. Morales at the time of admission History of Present Illness Chief Complaint: Falls/syncopal episodes, low back pain, intermittent confusion Primary Care Provider: Tereza Dejesus MD Kristine is an 83-year-old female with a past medical history significant for left parietal lobe meningioma, hypertension, hyperlipidemia type 2 diabetes mellitus who presented to the [facility] ED on 01/05/2024 after experiencing multiple syncopal episodes yesterday and family being concerned for increased confusion today. Per the ED, the patient reportedly had a ground- level fall yesterday where she landed on her buttocks. She has been having ongoing increased lower back pain compared to baseline. This morning she went to use the restroom and had multiple episodes of what were thought to be vasovagal episodes on the toilet. She was initially noted to be hypoxic at 86% on room air, however this resolved and she was otherwise stable. Labs including CBC and CMP were unremarkable.Patient's urinalysis shows 3+ glucose, 1+ leukocyte esterase, 1120 white blood cells, no bacteria noted. Chest x-ray, pelvis x-ray, and x-ray of the cervical spine were read as negative for acute findings. X-ray of the lumbar spine without contrast shows an acute L2 compression deformity with 20% vertebral body height loss and no retropulsion. CT of the head/brain without contrast was read as negative for acute fractures, but did note increased size of the meningioma adjacent to the superior left frontal lobe with mildly worsening mass effect on the adjacent left frontal lobe resulting in mild vasogenic edema. There was no midline shift or hydrocephalus. The patient was given 500 mL normal saline and 2 doses of 4 mg IV morphine while in the ED. The patient was recommended for admission by the emergency department, prior to admission to our facility the hospital medicine team requested at the ER speak to neurosurgery regarding the CT head findings today to ensure she is appropriate to stay at her facility. The ED staff spoke with [facility] who Stated that they were not concerned about the new findings and recommended outpatient follow-up on discharge, they did not recommend any treatment for the findings at this time. Patient was sitting in bed in no acute distress at time of exam, family had left prior to my arrival. She confirms above history. States that she had a fall yesterday evening, she was in her hallway and believes she turned around too quickly causing her to get slightly dizzy and feel off balance. She did fall to the floor, she did not hit her head or lose consciousness. Her was able to help her up and she felt well other than increased low back pain. This morning she woke up and had the sensation that she needed to go to the bathroom quickly. She states that this caused her to get up and walk to the bathroom quicker than she normally does. While on the toilet and having a bowel movement, she then felt lightheaded/hot and felt as though she may lose consciousness. She does not believe she fully lost consciousness as she called for her and son who came to assist her. Since arrival to the ED her symptoms, besides her low back pain, have resolved. She was able to ambulate to the restroom with one-person assist without issue. Pain is currently under control after a dose of morphine in the emergency department. States that her PCP is aware of her meningioma and they follow it routinely. The patient denies recent fever, chills, new paresthesias/unilateral weakness, changes in vision, hearing, taste, smell, chest pain, SOB, cough, hemoptysis, abdominal pain, nausea, vomiting, diarrhea, dysuria, hematuria, melena, bloody BM's, LE swelling. We discussed CODE STATUS, she wishes to be a full code and for her and son to make medical decisions for her if she cannot make them herself. Please refer to Dr. Morales's attestation for any changes to the treatment plan Allergies Allergy/AdvReac Type Severity Reaction Status Date / Time No Known Allergies Allergy Verified 01/05/24 10:29 Home Medications Medication Instructions Recorded Confirmed Type cholecalciferol (vitamin D3) 25 1,000 units PO DAILY 05/23/19 01/05/24 History mcg (1,000 unit) capsule multivitamin 1 tab PO DAILY 05/23/19 01/05/24 History omega-3 acid ethyl esters 1 gram 1 cap PO DAILY 05/23/19 01/05/24 History capsule travoprost 0.004 % eye drops 1 drops ophthalmic (eye) QPM 05/23/19 01/05/24 History aspirin 81 mg tablet,delayed 81 mg PO QAM #90 tabs 03/06/22 01/05/24 Rx release losartan 50 mg tablet 50 mg PO DAILY #90 tabs 01/16/23 01/05/24 Rx sertraline 50 mg tablet 50 mg PO DAILY #90 tabs 01/16/23 01/05/24 Rx alendronate 70 mg tablet 70 mg PO WEEKLY #12 tabs 10/18/23 01/05/24 Rx glimepiride 4 mg tablet 4 mg PO QAM #90 tabs 10/18/23 01/05/24 Rx atorvastatin 10 mg tablet 10 mg PO DAILY #90 tabs 12/04/23 01/05/24 Rx empagliflozin 10 mg tablet 10 mg PO DAILY #90 tabs 12/25/23 01/05/24 Rx (Jardiance) Past Med/Surg History Problem List (Updated 01/05/24 @ 12:03 by Hugo Pierre PA-C) Near syncope Syncope (Acute) Meningioma (Acute) Compression fx, lumbar spine (Acute) Excessive cerumen in both ear canals Hypomagnesemia Meningioma Lyme disease (Acute) Intracranial mass (Acute) Diabetes mellitus type II, controlled Toenail deformity Encounter for examination following treatment at hospital Diabetes Elevated LFTs Hyponatremia (Acute) UTI (urinary tract infection) HTN (hypertension) (Chronic) Hyperlipidemia (Chronic) Osteoporosis (Chronic) Impacted cerumen of right ear (Chronic) Abnormal fasting glucose (Chronic) Routine health maintenance (Chronic) Medical History Muscle right arm weakness Numbness and tingling of right arm and leg Stroke-like symptoms Headache Surgical History Hx of shoulder surgery Family History Sister Colorectal cancer Mother , age 67 of congestive heart failure Diabetes Heart disease Hypertension Father , age 73 of a stroke Stroke Denies family history of Ovarian cancer Prostate cancer Myocardial infarction Breast cancer Social History Smoking Status: Never smoker Second Hand Exposure: Yes; Do You Dip or Chew Tobacco: No; Hx Alcohol Use: No Hx Substance Use: No Preferred Language: Greek Communication Ability: Effective Visual Impairment: Limited Hearing Ability: Normal Animal Doctor Required: No Beliefs That Will Affect Care: None marital status: Current Living Situation: Spouse current occupational status: retired 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 How many Children do You have: 3 Feels Safe at Home: Yes Childhood Exposure to Second-Hand Smoke: No Diet: regular caffeine: Yes during the past year weight has: remained stable Dental Care, Regularly: No Physical Activity Frequency: Daily Seatbelt Use: always Sunscreen Use: Yes (sometimes) Assistive Devices: Denture - Upper and Glasses Physical Exam Physical Exam: Physical Exam: General: In no acute distress, stated age, well-nourished, good hygiene HEENT: Normocephalic, atraumatic, no scleral icterus, pupils around round, symmetrical, and reactive to light, moist mucus membranes, trachea midline, no thyromegaly Chest/Pulm: No respiratory distress, symmetrical chest expansion, clear breath sounds throughout Cardiac: RRR, no murmurs noted Abdomen: Negative for ascites and bruising, normoactive bowel sounds, soft, non-tender to palpation throughout Musculoskeletal: Patient with tenderness to palpation over the lower lumbar spine without step-offs or crepitus. Otherwise no acute trauma on exam. Extremities: Radial, dorsalis pedis, and posterior tibial pulses are intact and symmetrical, no edema noted in the LE's Skin: Warm, dry, no rashes , lesions, or scars noted Neuro: Alert and oriented to person, place, month, year, and president, no focal defects, CN II-XII tested and intact, negative cerebellar/pronator drift testing in the UE's, no tremors noted Psych: No acute distress, calm and cooperative during the exam Results & Data Results & Data Vital Signs (Past 12 Hours) Vital Signs Temp Pulse Pulse Resp BP BP Pulse Ox 01/05/24 10:40 74 23 123/60 94 01/05/24 10:20 19 124/80 95 01/05/24 10:09 86 L 01/05/24 09:20 18 158/75 H 91 01/05/24 08:56 72 01/05/24 08:34 73 18 90 01/05/24 07:52 36.6 C 75 18 196/85 H 95 O2 Del Method O2 Flow Rate 01/05/24 10:40 Room Air 01/05/24 10:20 Nasal Cannula 2 01/05/24 10:09 Room Air, Nasal Cannula 0 01/05/24 09:20 Room Air 01/05/24 08:56 01/05/24 08:34 Room Air 01/05/24 07:52 Room Air Laboratory Results Abnormal lab results 01/05/24 01/05/24 Range/Units 07:20 10:41 Cassia # (Auto) 0.75 H (0.11-0.59) K/uL Creatinine 1.24 H (0.6-1.2) mg/dl Glucose 146 H (70-99(Fasting)) mg/dl Urine pH 8.0 H (4.5-7.5) Urine Glucose (UA) 3+ H (Negative) Ur Leukocyte Esterase 1+ H (Negative) Urine WBC (Auto) 11-20 H (0-5) /hpf Diagnostic Findings Cervical Spine CT 01/05/24 08:00 CT cervical spine wo con CLINICAL HISTORY: 83 years-old Female with trauma. Acute neck trauma COMPARISON: CTA neck 03/05/2022 TECHNIQUE: Multiple axial CT images of the cervical spine were obtained without contrast. A dose lowering technique was utilized adhering to the principles of ALARA. FINDINGS: Multilevel degenerative changes including degenerative partial bony fusion at C5-C6 and severe disc space narrowing and moderate spondylitic spurring at C4-C5. Moderate to severe multilevel facet arthrosis. Partially calcified pannus posterior to the dens. Unchanged likely benign lucent focus of the C7 vertebral body. Developmental incomplete bony fusion involves the posterior arch of C1. The cervical soft tissues appear unremarkable. Left cervical rib incidentally noted. The visualized lung apices appear clear. IMPRESSION: No acute cervical spine fracture or subluxation. ACT 112: Negative or not required by law. The above report was generated using voice recognition software. It may contain grammatical, syntax or spelling errors. Electronically signed by: Marcelo Bill M.D. 01/05/2024 10:[address] 01/05/24 08:00 CT head/brain wo con CLINICAL HISTORY: 83 years-old Female with trauma. Acute head trauma TECHNIQUE: Multiple axial CT images of the head were obtained without contrast. A dose lowering technique was utilized adhering to the principles of ALARA. CT DOSE: 2025.62 mGy.cm COMPARISON: CT cervical spine of same day, brain MRI 03/05/2022 FINDINGS: No acute intracranial hemorrhage, midline shift, intra-axial mass, hydrocephalus, territorial ischemia or abnormal extra-axial collection. Involutional changes with chronic microvascular ischemic disease. Extra-axial mass adjacent to the superior left frontal lobe on image 25 series 2 measuring approximately 4.2 cm demonstrates mild mass effect and vasogenic edema upon the superior left frontal lobe which has progressed from prior. The lesion has increased in size previously measuring approximately 3.3 cm. The calvarium is intact. Developmental incomplete bony fusion involves the posterior arch of C1. The paranasal sinuses, mastoid air cells, and middle ear cavities are clear. IMPRESSION: 1. No acute intracranial abnormality or calvarial fracture. 2. Increased size of the meningioma adjacent to the superior left frontal lobe with mildly worsened mass effect on the adjacent left frontal lobe resulting in mild vasogenic edema. 3. No midline shift or hydrocephalus. ACT 112: Negative or not required by law. The above report was generated using voice recognition software. It may contain grammatical, syntax or spelling errors. Electronically signed by: Marcelo Bill M.D. 01/05/2024 10:[address] 01/05/24 08:00 CT lumbar spine wo con HISTORY: 83 years-old Female trauma acute low back pain status post fall COMPARISON: None TECHNIQUE: Multiple axial CT images of the lumbar spine were obtained without IV contrast. A dose lowering technique was used consistent with the principals of ALARA. FINDINGS: Demineralized appearance of the bones. Mild multilevel intervertebral disc space narrowing and spondylotic spurring with moderate facet arthrosis. Grade 1 anterolisthesis L4 on L5, likely secondary to the chronic facet disease. There is an acute L2 compression deformity with fracture lines involving the lateral, anterior, superior and inferior endplates. No retropulsion. There is only approximately 20% vertebral body height loss. Minimal paravertebral edema. Moderate central canal stenosis at L4-L5 with at least mild bilateral foraminal stenosis at this level. The imaged sacrum appears intact. Colonic diverticulosis. Distended urinary bladder. Atherosclerosis of the aorta. Complex and simple cysts of the left kidney. IMPRESSION: 1. Acute L2 compression deformity with 20% vertebral body height loss and no retropulsion. 2. Degenerative changes as above. ACT 112: Negative or not required by law. The above report was generated using voice recognition software. It may contain grammatical, syntax or spelling errors. Electronically signed by: Marcelo Bill M.D. 01/05/2024 10:04 AM Pelvis X-Ray 01/05/24 08:00 XR pelvis 1-2V routine HISTORY: 83 years-old Female trauma acute pelvic trauma COMPARISON: None TECHNIQUE: AP view of the pelvis FINDINGS: Moderate osteoarthritis of the hips. No acute fracture, dislocation or avascular necrosis. Unremarkable soft tissues. IMPRESSION: No acute fracture or dislocation identified. ACT 112: Negative or not required by law. The above report was generated using voice recognition software. It may contain grammatical, syntax or spelling errors. Electronically signed by: Marcelo Bill M.D. 01/05/2024 9:09 AM Chest X-Ray 01/05/24 08:01 XR chest 1V portable HISTORY: 83 years-old Female trauma acute chest trauma status post fall COMPARISON: 03/05/2022 TECHNIQUE: AP view the chest FINDINGS: Cardiac silhouette is enlarged. No pneumothorax or large pleural effusion. No overt pulmonary edema. Degenerative changes of the shoulders and spine. Mild subsegmental left basilar opacities similar to prior suggestive of atelectasis versus scarring. IMPRESSION: Cardiomegaly without acute process. ACT 112: Negative or not required by law. The above report was generated using voice recognition software. It may contain grammatical, syntax or spelling errors. Electronically signed by: Marcelo Bill M.D. 01/05/2024 9:17 AM ECG Additional Comments: Normal sinus rhythm Normal ECG When compared with ECG of 05-MAR-2022 11:27, No significant change was found Code Status & VTE Plan Code Status Full code VTE Prophylaxis Plan VTE Prophylaxis will be ordered: Yes PG Care Time/CCT Total # of Minutes Spent Total Time Spent with Patient: Total time spent is greater than 50% in coordination of care (as documented) at patient's floor/unit and/or counseling patient: Coding [place] [address] INT INP/OBS CARE 2/55MIN Patient Type Established History Comprehensive Exam Comprehensive Medical Decision Making Moderate Complexity Diagnoses Near syncope R55 Compression fx, lumbar spine S32.020A Encounter type: initial encounter Lumbar vertebra fracture level: L2 Meningioma D32.9 Controlled type 2 diabetes mellitus without complication, without long-term current use of insulin E11.9 Diabetes mellitus half-way insulin use: without semiconductor bonder use Diabetes mellitus complication status: without complication Primary hypertension I10 Hypertension type: primary hypertension (2) Compression fx, lumbar spine Encounter type: initial encounter Lumbar vertebra fracture level: L2 Qualified Code(s): S32.020A - Wedge compression fracture of second lumbar vertebra, initial encounter for closed fracture (4) Diabetes mellitus type II, controlled Diabetes mellitus semiconductor bonder insulin use: without semiconductor bonder use Diabetes mellitus complication status: without complication Qualified Code(s): E11.9 - Type 2 diabetes mellitus without complications (5) HTN (hypertension) Hypertension type: primary hypertension Qualified Code(s): I10 - Essential (primary) hypertension
[2024-01-05] MEDS ORDERED: GLUCOSE 10 TAB/TUBE PO PRN (11:56)
[2024-01-05] MEDS ORDERED: DEXTROSE 50% 50 ML SYRINGE IV PRN (11:56)
[2024-01-05] MEDS ORDERED: GLUCOSE 40% GEL 15 GM TUBE PO PRN (11:56)
[2024-01-05] MEDS ORDERED: CARBOHYDRATES FOR HYPOGLYCEMIA PO PRN (11:56)
[2024-01-05] MEDS ORDERED: GLUCAGON FOR INJ 1 MG VIAL SQ PRN (11:56)
[2024-01-05] MEDS ORDERED: ONDANSETRON INJ 2 MG/ML 2 ML VIAL IV PRN (12:02)
[2024-01-05] MEDS: ACETAMINOPHEN 500 MG TAB PO STA (12:58)
[2024-01-05] MEDS: LIDOCAINE 5% 1 PATCH TD STA (12:58)
[2024-01-05] MEDS: INSULIN ASPART PER UNIT CHARGE SC SCH (15:50)
--- NOTE | 2024-01-05 17:51 | Electrocardiogram Report ---
Test Reason : Blood Pressure : / mmHG Vent. Rate : 075 BPM Atrial Rate : 075 BPM P-R Int : 186 ms QRS Dur : 086 ms QT Int : 398 ms P-R-T Axes : 061 036 066 degrees QTc Int : 444 ms Normal sinus rhythm Normal ECG When compared with ECG of 05-MAR-2022 11:27, No significant change was found Confirmed by Trev Ladd ([id number]) on 01/05/2024 5:50:47 PM Referred By: REFERRED SELF Confirmed By:Jair Ladd
[2024-01-05] MEDS: ACETAMINOPHEN 325 MG TAB PO SCH (18:35)
[2024-01-05] MEDS: TRAVOPROST Z 0.004% OPH SOLN 2.5 ML BTL OPB SCH (20:25)
[2024-01-05] MEDS: ENOXAPARIN INJ 40 MG/0.4 ML SYR SQ SCH (20:26)
[2024-01-05] MEDS: MoRPHine SULFATE 2 MG/ML CARP IV PRN (20:53)
[2024-01-06 07:30] LABS: Basophils # (auto) 0.05 K/uL (0.00-0.20); Basophils % (auto) 0.8 %; Eosinophils # (auto) 0.19 K/uL (0.00-0.50); Eosinophils % (auto) 3.2 %; Hematocrit (blood only) 40.4 % (37.0-47.0); Hemoglobin 13.1 g/dl (12.0-16.0); Immature Granulocytes # (auto) 0.01 K/uL (0.01-0.20); Immature Granulocytes % (auto) 0.2 %; Lymphocytes # (auto) 2.27 K/uL (1.20-3.40); Mean Corpuscular Hemoglobin 29.7 pg (25.0-34.0); Mean Corpuscular Hgb Conc 32.4 g/dL (32.0-36.0); Mean Corpuscular Volume 91.6 fL (80.0-100.0); Mean Platelet Volume 10.2 fL (9.4-12.4); Monocytes # (auto) 0.48 K/uL (0.11-0.59); Neutrophils # (auto) 2.98 K/uL (1.40-6.50); Neutrophils % (auto) 49.8 %; Platelet Count 168 K/uL (130-400); RDW Standard Deviation 43.8 fL (36.4-46.3); Red Blood Count 4.41 M/uL (4.20-5.40); White Blood Count 5.98 K/ul (4.8-10.8)
[2024-01-06 07:48] LABS: Calcium 9.5 mg/dl (8.6-10.3); Creatinine Clr Calc Pharmacy 34.2 ml/min; Est GFR (African American) 48.5 ml/min; Est GFR (Non-African American) 41.9 ml/min
[2024-01-06 08:50] LABS: Magnesium 1.9 mg/dl (1.7-2.4)
[2024-01-06] MEDS: ATORVASTATIN 10 MG TAB PO SCH (09:03)
[2024-01-06] MEDS: LOSARTAN POTASSIUM 50 MG TAB PO SCH (09:03)
[2024-01-06] MEDS: SERTRALINE HCL 50 MG TABLET PO SCH (09:03)
[2024-01-06] MEDS: ASPIRIN 81 MG ECTAB PO SCH (09:03)
[2024-01-06] MEDS: EMPAGLIFLOZIN 10 MG TAB PO SCH (09:04)
[2024-01-06] MEDS: GLIMEPIRIDE 2 MG TAB PO SCH (09:04)
[2024-01-06] MEDS: LIDOCAINE 5% 1 PATCH TD STA (12:19)
--- NOTE | 2024-01-06 14:49 | Discharge Summary ---
Date of Service January 06, 2024 Admission HPI Per Admitting Provider Kristine is an 83-year-old female with a past medical history significant for left parietal lobe meningioma, hypertension, hyperlipidemia type 2 diabetes mellitus who presented to the [facility] ED on 01/05/2024 after experiencing multiple syncopal episodes yesterday and family being concerned for increased confusion today. Per the ED, the patient reportedly had a ground- level fall yesterday where she landed on her buttocks. She has been having ongoing increased lower back pain compared to baseline. This morning she went to use the restroom and had multiple episodes of what were thought to be vasovagal episodes on the toilet. She was initially noted to be hypoxic at 86% on room air, however this resolved and she was otherwise stable. Labs including CBC and CMP were unremarkable.Patient's urinalysis shows 3+ glucose, 1+ leukocyte esterase, 1120 white blood cells, no bacteria noted. Chest x-ray, pelvis x-ray, and x-ray of the cervical spine were read as negative for acute findings. X-ray of the lumbar spine without contrast shows an acute L2 compression deformity with 20% vertebral body height loss and no retropulsion. CT of the head/brain without contrast was read as negative for acute fractures, but did note increased size of the meningioma adjacent to the superior left frontal lobe with mildly worsening mass effect on the adjacent left frontal lobe resulting in mild vasogenic edema. There was no midline shift or hydrocephalus. The patient was given 500 mL normal saline and 2 doses of 4 mg IV morphine while in the ED. The patient was recommended for admission by the emergency department, prior to admission to our facility the hospital medicine team requested at the ER speak to neurosurgery regarding the CT head findings today to ensure she is appropriate to stay at her facility. The ED staff spoke with [place] [facility] who Stated that they were not concerned about the new findings and recommended outpatient follow-up on discharge, they did not recommend any treatment for the findings at this time. Patient was sitting in bed in no acute distress at time of exam, family had left prior to my arrival. She confirms above history. States that she had a fall yesterday evening, she was in her hallway and believes she turned around too quickly causing her to get slightly dizzy and feel off balance. She did fall to the floor, she did not hit her head or lose consciousness. Her was able to help her up and she felt well other than increased low back pain. This morning she woke up and had the sensation that she needed to go to the bathroom quickly. She states that this caused her to get up and walk to the bathroom quicker than she normally does. While on the toilet and having a bowel movement, she then felt lightheaded/hot and felt as though she may lose consciousness. She does not believe she fully lost consciousness as she called for her and son who came to assist her. Since arrival to the ED her symptoms, besides her low back pain, have resolved. She was able to ambulate to the restroom with one-person assist without issue. Pain is currently under control after a dose of morphine in the emergency department. States that her PCP is aware of her meningioma and they follow it routinely. The patient denies recent fever, chills, new paresthesias/unilateral weakness, changes in vision, hearing, taste, smell, chest pain, SOB, cough, hemoptysis, abdominal pain, nausea, vomiting, diarrhea, dysuria, hematuria, melena, bloody BM's, LE swelling. We discussed CODE STATUS, she wishes to be a full code and for her and son to make medical decisions for her if she cannot make them herself. Please refer to Dr. Morales's attestation for any changes to the treatment plan Principal Diagnosis vasovagal syncope Discharge Exam GENERAL: 81 yo Well-developed, well-nourished elderly WF. NAD. LUNGS: Clear to auscultation bilaterally. No W/R/R. CARDIOVASCULAR: Regular rate and rhythm. No M/G/R. No JVD. ABDOMEN: Soft, non-tender and non-distended. BS normoactive x 4 quad. EXTREMITIES: No edema. NEUROLOGIC: A&O x3. Nonfocal Discharge Data Allergies Allergy/AdvReac Type Severity Reaction Status Date / Time No Known Allergies Allergy Verified 01/07/24 16:28 Consultations 01/05/24 10:54 ED Decision to Admit Stat Ordered Studies 01/05/24 08:00 CT cervical spine wo con Stat CT head/brain wo con Stat CT lumbar spine wo con Stat Hospital Course (1) Near syncope: Likely Vasovagal syncope Admitted to med/telemetry Stable, nontoxic-appearing, and asymptomatic at the time of admission and throughout hospital stay Telemonitor was negative for arrhythmia Presented to the ED this a.m. after experiencing what appears to be a vasovagal episode while going to the bathroom on the toilet Patient's family initially reported that she was slightly confused after this episode, however she is alert and oriented x 4, is responding appropriately to questions, and is without focal neurologic findings on exam at time of admission and discharge. Has been able to ambulate to the restroom since arrival without recurrence of symptoms (2) Compression fx, lumbar spine: Patient noted to have an L2 compression fracture on lumbar spine CT today Approximately 20% vertebral body height loss without retropulsion Patient is without focal neuro defect since her fall Will start scheduled Tylenol placed on calcitonin spray. (3) Meningioma: CT of the head/brain without contrast today shows an increase in size of the patient's meningioma with mildly worsened mass effect on the adjacent left frontal lobe resulting in mild vasogenic edema CT of the head/brain was negative for midline shift or hydrocephalus Patient is alert/oriented, and without focal motor defects on exam Emergency department discussed the case with [facility] neurosurgery at the request of the admission team [facility] [facility] felt this finding was unremarkable at this time, they did not think she needed to be started on any medical treatment such as steroids for the vasogenic edema, and recommended she follow-up outpatient with their servic es after discharge. (4) Diabetes mellitus type II, controlled: resume home meds (5) HTN (hypertension): Currently stable Will continue home losartan Total Time Total Time Spent Total Time Spent (In Minutes): 32 Discharge Plan Discharge Items Patient Disposition: Home - Self-Care Reason For Visit: fall, vasovagal episode, L2 compression fracture Discharge Diagnosis: fall Activity: Resume your previous activity Non-emergency contact: Primary Care Provider Call non-emergency contact if: you have any medication questions Follow-up/Referrals: Tereza Dejesus MD [Primary Care Provider] - Diet: Regular and Carb Consistent or DM2 Addtl Attending Provider Instructions: Good afternoon Mrs. Ohara, It appears you sustained a Vasovagal syncope Syncope is the medical term for fainting or passing out. The most common type of syncope in all age groups is called vasovagal syncope. A variety of conditions can trigger vasovagal syncope, including physical or psychological stress, dehydration, bleeding, or pain. The heart rate may slow dramatically at the time of the faint, and the blood vessels (mainly the veins) in the body expand, causing blood to pool in the lower extremities and the bowels, resulting in less blood return to the heart and a low blood pressure (hypotension). This causes a decrease in blood flow to the brain which causes near or complete loss of consciousness. Fortunately, blood flow is usually sufficiently restored when the person falls down or is placed in a horizontal position. In some cases, vasovagal syncope is triggered by an emotional response to a stimulus, such as fear of injury, heat exposure, the sight of blood, or extreme pain. In still other cases, no trigger can be identified. Other forms of reflex syncope are those caused by abnormal nervous system responses to activities such as urinating, having a bowel movement, coughing, or swallowing. In most cases of vasovagal syncope, you have some warning that you are near fainting. These signs include dizziness, feeling hot or cold, nausea, pale skin, "tunnel-like" vision, disturbance of hearing, and profuse sweating. After the episode, symptoms may continue because of continued low blood pressure. Some people feel extremely tired afterward. In some cases, particularly in older people, the person may not remember having experienced any warning symptoms after they recover. Thankfully, there is no need for treatment. You were also found to have a compression fracture in your lumbar spine. We will place you on calcitonin spray. This actually helps with lumbar back pain from vertebral fractures. Use it by alternating nostrils, one nostril per day. Recommend followup with PCP in 1-2 weeks. Kindest regards, Eric Gómez MD Pending Studies at Discharge: No Stand-Alone Forms: My [facility], Smoking Cessation Medications and DC Order Prescriptions: New calcitonin (salmon) 200 unit/actuation spray,non-aerosol 1 spray intranasal (ALT) DAILY Qty: 3.7 0RF lidocaine 5 % adhesive patch,medicated 1 patch topical DAILY Qty: 15 0RF Rx Instructions: leave on most painful area for up to 12 hrs remove for 12 hours Continued losartan 50 mg tablet 50 mg PO DAILY Qty: 90 3RF Rx Instructions: New dose of this medication sertraline 50 mg tablet 50 mg PO DAILY Qty: 90 1RF glimepiride 4 mg tablet 4 mg PO QAM Qty: 90 1RF Rx Instructions: administer with breakfast alendronate 70 mg tablet 70 mg PO WEEKLY Qty: 12 1RF Rx Instructions: Takes on Wednesdays atorvastatin 10 mg tablet 10 mg PO DAILY Qty: 90 2RF Jardiance 10 mg tablet 10 mg PO DAILY Qty: 90 1RF omega-3 acid ethyl esters 1 gram capsule 1 cap PO DAILY Rx Instructions: Unable to verify OTC meds at this date/time. cholecalciferol (vitamin D3) 1,000 unit capsule 1,000 units PO DAILY Rx Instructions: Unable to verify OTC meds at this date/time. multivitamin tablet 1 tab PO DAILY Rx Instructions: Unable to verify OTC meds at this date/time. travoprost 0.004 % drops 1 drops OP QPM aspirin 81 mg Tablet,Delayed Release (Dr/Ec) 81 mg PO QAM Qty: 90 0RF Rx Instructions: Unable to verify OTC meds at this date/time. No Action acetaminophen [Tylenol] 325 mg tablet 650 mg PO Q6H PRN Discharge Orders: Discharge Order (Routine); Ordered 01/06/24 Ordered By: Eric Gómez Admission Data Admit Date/Time: 01/05/24 11:54 Attending Provider: Eric Gómez Admit Provider: Josh Morales Primary Care Provider: Tereza Dejesus Other Providers: Josh Morales Other Interventions: Discharge Summary Assessment (RN) Last Done: 01/06/24 15:01 Coding Level of Care Code 56053 INP/OBS DISCH >30 MIN Diagnoses Near syncope R55 Compression fx, lumbar spine S32.020A Encounter type: initial encounter Lumbar vertebra fracture level: L2 Meningioma D32.9 Controlled type 2 diabetes mellitus without complication, without long-term current use of insulin E11.9 Diabetes mellitus complication status: without complication Diabetes mellitus middle or intermediate school principal insulin use: without retirement use Primary hypertension I10 Hypertension type: primary hypertension
== END 2024-01-06 16:02 | disposition home or self-care (01) | DRG 312 ==
LOC: ED 07:46 → SUATTDRO 11:54 → EDINP 11:54 → 2N 15:48
DX: Z79.899 Other long term (current) drug therapy; E78.5 Hyperlipidemia, unspecified; R55 Syncope and collapse; I10 Essential (primary) hypertension; Z79.82 Long term (current) use of aspirin; M48.56XA Collapsed vertebra, not elsewhere classified, lumbar region, initial encounter for fracture; Z82.49 Family history of ischemic heart disease and other diseases of the circulatory system; Z83.3 Family history of diabetes mellitus; R09.02 Hypoxemia; Z91.81 History of falling; Z79.84 Long term (current) use of oral hypoglycemic drugs; D32.9 Benign neoplasm of meninges, unspecified; E11.9 Type 2 diabetes mellitus without complications; M81.0 Age-related osteoporosis without current pathological fracture